=== PATIENT | female | born 1945 | race Caucasian/White ===

== ENCOUNTER → 2021-04-09 | Day surgery (SDC) | payer OTHER ==
[2021-04-08 09:59] LABS: Basophils # (auto) 0.1 10 ^3/uL (0-0.2); Basophils % (auto) 0.9 % (0.0-2.0); Eosinophils # (auto) 0.2 10 ^3/uL (0-0.8); Eosinophils % (auto) 1.6 % (0.0-7.0); Hematocrit 38.7 % (36.0-46.0); Hemoglobin 12.9 g/dL (12.2-16.2); Lymphocytes # (auto) 3.2 10 ^3/uL (0.4-5.4); Lymphocytes % (auto) 27.4 % (10.0-50.0); Mean Corpuscular Hemoglobin 28.5 pg (28.0-32.0); Mean Corpuscular Hgb Conc. 33.2 g/dL (32.0-36.0); Mean Corpuscular Volume 85.9 fL (80.0-100.0); Monocytes # (auto) 0.9 10 ^3/uL (0-1.3); Monocytes % (auto) 7.4 % (0.0-12.0); Neutrophils # (auto) 7.3 10 ^3/uL (1.6-8.6); Neutrophils % (auto) 62.7 % (37.0-80.0); Red Cell Distribution Width 14.4 % (11.8-14.3); White Blood Cell 11.6 10^3/uL (4.4-10.8)
[2021-04-08 10:16] LABS: Partial Thromboplastin Time 25.1 sec (23.6-33.0)
[2021-04-08 10:52] LABS: Albumin 3.4 g/dL (3.4-5.0); BUN/Creatinine Ratio 12.7; Bilirubin, Total 0.3 mg/dL (0.2-1.0); Calcium 9.3 mg/dL (8.5-10.1); Total Protein 7.7 g/dL (6.4-8.2)
[2021-04-08 10:56] LABS: Urine Bacteria NONE SEEN /hpf (None Seen); Urine Blood Negative /uL (Negative); Urine Mucus FEW (None Seen); Urine Specific Gravity 1.021 (1.001-1.035); Urine WBC 60 /hpf (0 - 5)
[~2021-04-09] VITALS: Ht 165.1 cm; Wt 84.8 kg
[~2021-04-09] MED LIST: ASPI1TAB20 PO; BUPIVACAINE 0.25% INJ 50ML VIAL ONE; CHOL20007 OR; EZET10TA22 PO; GABA-339 PO; HYDR-4072 PO; HYDROmorphone HCL 2 MG/ML VL IV PRN; IBU600T PO; LATA0.0019 OP; LEVO25TA6 PO; LIDOCAINE 2% (LOCAL ANESTH.) PF 5ml SDV ONE; LIDOCAINE W/ EPINEPHRINE 2% INJ 20ML VIAL ONE; METF-370 PO; MIDAZOLAM HCL 2MG/2ML 2ml VIAL (1mg/ml) ONE; OMEP20TA PO; ONDANSETRON HCL 4 MG/2 ML VIAL IV PRN; ONDANSETRON HCL 4 MG/2 ML VIAL ONE; PROPOFOL 10 MG/ML 20 ML IV ONE; TRIATAB3 OR; VANCOMYCIN HCL 1000 MG VL ONE; fentaNYL CITRATE 100 MCG/2 ML VL ONE
[2021-04-09 09:30] VITALS: BP 128/54
== END | disposition home or self-care (01) ==
LOC: SUR 06:09
PROVIDERS: ATTEND Anesthesiology Pain Medicine
DX: Z45.42 Encounter for adjustment and management of neurostimulator (principal); M96.1 Postlaminectomy syndrome, not elsewhere classified; M51.16 Intervertebral disc disorders with radiculopathy, lumbar region; M51.36 Other intervertebral disc degeneration, lumbar region; M48.062 Spinal stenosis, lumbar region with neurogenic claudication; I10 Essential (primary) hypertension; I48.91 Unspecified atrial fibrillation; E11.9 Type 2 diabetes mellitus without complications; E03.9 Hypothyroidism, unspecified; Z87.891 Personal history of nicotine dependence; Z20.822 Contact with and (suspected) exposure to COVID-19; Z98.890 Other specified postprocedural states; Z79.899 Other long term (current) drug therapy
CPT/HCPCS: 36415; 63685; 80053; 81001; 82962; 85025; 85610; 85730; 87086; 95972; A4215; C1787; C1820; J2001; J2250; J2405; J2704; J3010; J3370; J3490; U0003

== ENCOUNTER 2024-02-20 12:16 | Emergency (ER) | payer OTHER ==
[~2024-02-20] VITALS: Ht 165.1 cm; Wt 81.8 kg
[~2024-02-20 12:16] MED LIST changes: -BUPIVACAINE 0.25% INJ 50ML VIAL ONE; -HYDROmorphone HCL 2 MG/ML VL IV PRN; -LATA0.0019 OP; +LATA0.008 OP; -LIDOCAINE 2% (LOCAL ANESTH.) PF 5ml SDV ONE; -LIDOCAINE W/ EPINEPHRINE 2% INJ 20ML VIAL ONE; -MIDAZOLAM HCL 2MG/2ML 2ml VIAL (1mg/ml) ONE; -ONDANSETRON HCL 4 MG/2 ML VIAL IV PRN; -ONDANSETRON HCL 4 MG/2 ML VIAL ONE; -PROPOFOL 10 MG/ML 20 ML IV ONE; -VANCOMYCIN HCL 1000 MG VL ONE; -fentaNYL CITRATE 100 MCG/2 ML VL ONE
--- NOTE | 2024-02-20 13:19 | DVH ---
EXAM: CT HEAD WITHOUT CONTRAST HISTORY: fall COMPARISON: None TECHNIQUE: Axial images of the head were obtained and reformatted in coronal and sagittal planes. All CT scans at this medical facility are performed using dose modulation techniques as appropriate t o a performed exam including the following: Automated exposure control was utilized; adjustment of th e MA and/or KV according to patient size; and use of iterative reconstruction technique. CT Dose: CTDI volume is 57.75 mGy. 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 There is moderate associated streak artifact limiting evaluation adjacent parenchyma . There are postsurgical changes related to right frontal craniotomy. There is no gross evidence of acute intracranial hemorrhage, mass, mass effect midline shift. There i s no hydrocephalus or extra-axial fluid collection. Visualized parenchyma demonstrates appropriate g ray-white matter differentiation. The visualized paranasal sinuses and mastoid air cells are clear. The calvarium is intact. IMPRESSION: 1. No acute intracranial process. 2. Postsurgical changes related to aneurysm coiling and clipping. HS:Y
--- NOTE | 2024-02-20 13:23 | DVH ---
CLINICAL INDICATION: fall TECHNIQUE: XY L SHOULDER 2+ VIEW XRAY Comparison: None FINDINGS/IMPRESSION: There is no evidence of acute fracture or dislocation. The visualized joint space is well maintained. The alignment is anatomical. There is no radiopaque foreign body.
--- NOTE | 2024-02-20 13:33 | DVH ---
EXAM: CT CERVICAL WITHOUT CONTRAST INDICATION: fall EXAM DATE: 02/20/2024 12:54 PM COMPARISON: CT HEAD WITHOUT CONTRAST on DOS: 02/20/24 TECHNIQUE: Multiple axial CT images of the cervical spine were obtained using bone algorithm. Axial a nd coronal reformatting was done. Bone and soft tissue windows were reviewed. Radiation Dose Information: CT Dose: CTDI volume is 20.38 mGy. Dose-length product is 567.45 mGy*cm FINDINGS: The cervical alignment is intact. No acute cervical spine fracture is identified. The vertebral body heights are intact. No suspicious osseous lesions are identified. Nuchal ligament calcification is no brandan. Multilevel moderate degenerative changes of the cervical spine. There is no prevertebral soft tissue swelling. Redemonstration of aneurysmal coil over the left supr aclinoid ICA region with aneurysmal clips over the right supraclinoid ICA region . IMPRESSION: No evidence of acute cervical spine fracture or traumatic malalignment. If symptoms persist, consider MRI for further evaluation. All CT scans at this medical facility are performed using dose modulation techniques as appropriate t o a performed exam including the following: Automated exposure control was utilized; adjustment of th e MA and/or KV according to patient size; and use of iterative reconstruction technique.
[2024-02-20 14:12] LABS: Basophils # (auto) 0.1 10 ^3/uL (0-0.2); Basophils % (auto) 0.8 % (0.0-2.0); Eosinophils # (auto) 0.1 10 ^3/uL (0-0.8); Eosinophils % (auto) 1.2 % (0.0-7.0); Hematocrit 40.9 % (36.0-46.0); Hemoglobin 13.4 g/dL (12.2-16.2); Lymphocytes # (auto) 2.4 10 ^3/uL (0.4-5.4); Mean Corpuscular Hemoglobin 28.9 pg (28.0-32.0); Mean Corpuscular Hgb Conc. 32.9 g/dL (32.0-36.0); Monocytes # (auto) 0.8 10 ^3/uL (0-1.3); Monocytes % (auto) 7.4 % (0.0-12.0); Neutrophils # (auto) 7.6 10 ^3/uL (1.6-8.6); Neutrophils % (auto) 68.6 % (37.0-80.0); Platelet Count (auto) 421 10^3/uL (140-450); Red Blood Cells 4.65 10^6/uL (4.0-5.20); Red Cell Distribution Width 16.5 % (11.8-14.3); White Blood Cell 11.1 10^3/uL (4.4-10.8)
[2024-02-20 14:24] LABS: Chloride 101 mmol/L (98-107); INR 0.98 (0.9-1.15); Potassium 4.3 mmol/L (3.5-5.1); Prothrombin Time 10.4 sec (9.3-11.8); Sodium 137 mmol/L (136-145)
[2024-02-20 14:25] LABS: Anion Gap 5 (5-15); Carbon Dioxide 31 mmol/L (20-31)
[2024-02-20 14:30] LABS: BUN/Creatinine Ratio 20.6 (10.0-20.0); Blood Urea Nitrogen 20 mg/dL (9-23)
[2024-02-20 14:31] LABS: Glucose 167 mg/dL (74-106)
[2024-02-20] MEDS ORDERED: ACET-1881 PO (15:24)
--- NOTE | 2024-02-20 15:24 | ED.PDOC ---
HPI (NEURO) HPI Comments 78-year-old female with no pertinent MHx presents for a fall x1 day. Reports she was at a car wash when she fell down a curb and landed on her left side. Also hit her head but denies LOC Patient states she got right back up with the help of two with a gentleman Complains of pain to the left humerus and pain 6/10 Denies persistent nausea Denies vomiting Denies family history of brain issues persistent headaches Denies taking any blood thinner medication Denies vision/hearing changes Denies focal loss of strength/sensation or changes in speech Chief Complaint: Fall Injury Time Seen by MD: 14:49 Primary Care Provider: STEVEN Reviewed Notes: Nurses Notes, Medications, Allergies Information Source: Patient Mode of Arrival: EMS Family History Family History: Reviewed,noncontributory to illness Social History Smoker: Non-Smoker Alcohol: Denies ETOH Use Drugs: Denies Drug Use All Other Systems: Reviewed and Negative (per hpi) Physical Exam General Appearance: No Apparent Distress, Normal HEENT: Head (Head is normocephalic atraumatic. No abrasions lacerations hematomas open wounds or tenderness to palpation), Normal ENT Inspection, PERRL/EOMI, Pharynx Normal, TMs Normal Neck: Full Range of Motion, Non-Tender, Normal, Normal Inspection Respiratory: Chest Non-Tender, Lungs Clear, No Accessory Muscle Use, No Respiratory Distress, Normal Breath Sounds Cardiovascular: No Edema, No JVD, No Murmur, No Gallop, Normal Peripheral Pulses, Regular Rate/Rhythm Breast Exam: Deferred Gastrointestinal: No Organomegaly, Non Tender, No Pulsatile Mass, Normal Bowel Sounds, Soft Genitalia: Deferred Pelvic: Deferred Rectal: Deferred Extremities: No calf tenderness, Normal capillary refill, Normal inspection, Normal range of motion, Non-tender, No pedal edema Musculoskeletal : Location: Left Extremity Location: Shoulder (No abrasions lacerations full ROM. Distal sensation intact) Apperance: Normal Neurologic: Alert, grades 1 thru 5 teacher II-XII nml as Tested, No Motor Deficits, Normal Affect, Normal Mood, No Sensory Deficits Cerebellar Function: Normal Reflexes: Normal Skin: Dry, Normal Color, Warm Lymphatic: No Adenopathy Was a procedure done? Was a procedure done?: No Differential Diagnosis (SZ) Headache: Closed Head Injury X-Ray, Labs, Meds, VS Vital Signs Date Time Temp Pulse Resp B/P (MAP) Pulse Ox O2 Delivery O2 Flow Rate FiO2 02/20/24 15:28 82 16 99 Room Air 02/20/24 15:28 98.3 82 16 158/86 (110) 99 98.3 02/20/24 12:21 98.3 82 16 158/86 (110) 99 Lab Test 02/20/24 13:42 Range/Units White Blood Count 11.1 H 4.4-10.8 10^3/uL Red Blood Count 4.65 4.0-5.20 10^6/uL Hemoglobin 13.4 12.2-16.2 g/dL Hematocrit 40.9 36.0-46.0 % Mean Corpuscular Volume 88.0 80.0-100.0 fL Mean Corpuscular Hemoglobin 28.9 28.0-32.0 pg Mean Corpuscular Hemoglobin Concent 32.9 32.0-36.0 g/dL Red Cell Distribution Width 16.5 H 11.8-14.3 % Platelet Count 421 140-450 10^3/uL Mean Platelet Volume 6.7 L 6.9-10.8 fL Neutrophils (%) (Auto) 68.6 37.0-80.0 % Lymphocytes (%) (Auto) 22.0 10.0-50.0 % Monocytes (%) (Auto) 7.4 0.0-12.0 % Eosinophils (%) (Auto) 1.2 0.0-7.0 % Basophils (%) (Auto) 0.8 0.0-2.0 % Neutrophils # (Auto) 7.6 1.6-8.6 10 ^3/uL Lymphocytes # (Auto) 2.4 0.4-5.4 10 ^3/uL Monocytes # (Auto) 0.8 0-1.3 10 ^3/uL Eosinophils # (Auto) 0.1 0-0.8 10 ^3/uL Basophils # (Auto) 0.1 0-0.2 10 ^3/uL Nucleated Red Blood Cells 0.0 % Prothrombin Time 10.4 9.3-11.8 sec Prothrombin Time INR 0.98 0.9-1.15 Sodium Level 137 136-145 mmol/L Potassium Level 4.3 3.5-5.1 mmol/L Chloride Level 101 98-107 mmol/L Carbon Dioxide Level 31 20-31 mmol/L Anion Gap 5 5-15 Blood Urea Nitrogen 20 9-23 mg/dL Creatinine 0.97 0.550-1.02 mg/dL Glomerular Filtration Rate Calc 61 >90 mL/min BUN/Creatinine Ratio 20.6 H 10.0-20.0 Serum Glucose 167 H 74-106 mg/dL Calcium Level 10.0 8.7-10.4 mg/dL X-Ray, Labs, Meds, VS Comment History consistent with no acute bleed and no fractures Patient was monitored for an extensive amount of time and symptoms improved throughout the length of the patient's stay Low concern for subarachnoid hemorrhage there are no signs of a thunderclap headache Low concern for subdural hematoma and intracranial hemorrhage as there is no history of trauma, progressively worsening headache and neuroexam is unremarkable. Low suspicion for brain tumor as neuroexam is unremarkable. No nausea vomiting. No morning or nocturnal headache. No suspicion for temporal arteritis as there are no signs of fever, muscle we akness, jaw claudication, no transient visual loss. Drink plenty of water Exercise daily, limit screen time Aim to sleep 8 to 9 hours per night, practice good hygiene ED precautions given On reevaluation, patient had symptomatic improvement. Patient is stable for discharge at this time. External notes reviewed. Test results and diagnostic imaging interpreted. All diagnostic findings, discharge care, education and instructions provided Follow-up with PCP in 2 to 3 days Patient verbalized understanding and agreed to treatment plan Vital signs stable, afebrile, no acute distress noted Advised to return precautions for any new or worsening symptoms, return to ER immediately for re-evaluation Patient is aware that the purpose of this visit was for an acute medical emergency requiring emergent stabilization. Chronic conditions, including malignancies have not been ruled out. Patient is instructed to follow up with PCP as directed and discharge instructions for continued care and workup. If unable to arrange follow-up, patient is to return to the emergency department for reassessment. Patient (parent or legal guardian if applicable) was given verbal and written discharge instructions and acknowledges understanding. Time of 1ST Reevaluation: 15:00 Reevaluation 1ST: Improved Patient Education/Counseling: Diagnosis, Treatment Family Education/Counseling: Diagnosis, Treatment Departure 1 Departure Time of Disposition: 15:23 Impression: Primary Impression: Fall Qualified Codes: W19.XXXA - Unspecified fall, initial encounter Disposition: 01 HOME / SELF CARE / HOMELESS Condition: Stable e-Prescriptions Acetaminophen (Acetaminophen) 325 Mg Tab 325 MG PO Q6HP PRN for 10 Days, #40 TAB 0 Refills Prov: KOMAL WERNER NP 02/20/24 Discharged With: Relative Critical Care Note Critical Care Time?: No Stability Stability form required: No Heart Score Heart Score: Heart Score Response (Comments) Value History N/A 0 EKG N/A 0 Age N/A 0 Risk Factors N/A 0 Troponin N/A 0 Total 0 KOMAL WERNER NP Feb 20, 2024 15:24
[2024-02-20 15:28] VITALS: BP 158/86; PULSE 82; RESP 16; TEMP 98.3; O2SAT 99
== END 2024-02-20 15:24 | disposition home or self-care (01) ==
LOC: EDBD 12:16 → ER 12:16
DX: M25.512 Pain in left shoulder (principal); R51.9 Headache, unspecified; M54.2 Cervicalgia; W18.39XA Other fall on same level, initial encounter; Y93.89 Activity, other specified; Y92.89 Other specified places as the place of occurrence of the external cause; Y99.8 Other external cause status
CPT/HCPCS: 36415; 70450; 72125; 73030; 80048; 85025; 85610

== ENCOUNTER 2024-12-30 14:36 | Inpatient (IN) | payer OTHER ==
[~2024-12-30] VITALS: Ht 162.6 cm; Wt 85.2 kg
[~2024-12-30 14:36] MED LIST changes: +ACET-1881 PO
[2024-12-30 16:02] LABS: Alanine Aminotransferase 19 U/L (7-40); Albumin 4.5 g/dL (3.2-4.8); Alkaline Phosphatase 91 U/L (46-116); Anion Gap 11 (5-15); BUN/Creatinine Ratio 13.8 (10.0-20.0); Blood Urea Nitrogen 15 mg/dL (9-23); Calcium 9.1 mg/dL (8.7-10.4); Carbon Dioxide 29 mmol/L (20-31); Potassium 4.4 mmol/L (3.5-5.1); Sodium 138 mmol/L (136-145); Total Protein 7.8 g/dL (5.7-8.2)
[2024-12-30 16:03] LABS: Bilirubin, Total 0.4 mg/dL (0.2-1.0)
[2024-12-30 16:08] LABS: Chloride 98 mmol/L (98-107); Glucose 124 mg/dL (74-106)
[2024-12-30 16:21] LABS: Lactic Acid w/Reflex 2.4 mmol/L (0.4-2.0)
--- NOTE | 2024-12-30 16:41 | ED.PDOC ---
Musculoskeletal HPI Comments HPI: Poor Historian. 79-year-old female sent by her orthopedic doctor to be admitted to the hospital for removal of knee replacement instrumentation due to infection. Patient had a joint aspiration proximally a week ago that shows staph infection. They are planning to replace the knee instrumentations and insert antibiotics beads. She was sent here by her doctor for admission. Patient denies any fever chills or any other acute symptoms. There is noted erythema over the anterior part of the right knee for at least two months patient states. 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 Atrial fibrillation ablation, neurostimulator battery implanted, total knee replacement, eye cataract, colonoscopy, REVIEW OF SYSTEMS: CONSTITUTIONAL: Denies acute: fever, diaphoresis, chills, generalized weakness. HEAD: Denies acute: headache, photophobia Eyes: Denies acute: Double vision, vision loss, eye pain, eye discharge. EARS: Denies acute: tinnitus, hearing loss, ear discharge, ear pain, THROAT: Denies acute: sore throat, swelling, difficulty swallowing , pain with swallowing, change in voice. NECK: Denies acute: neck pain, neck swelling, stiff neck. HEART: Denies acute : chest pain, palpitations, LUNGS: Denies acute: SOB, wheezing, cough, hemoptysis ABDOMEN: Denies acute: abdominal pain, Nausea, Vomiting, diarrhea, melena , hematemesis, hematochezia SKIN: Denies acute: rash, redness, lesions, itchiness. EXTREMITIES: Denies acute: calf pain, numbness, tingling, weakness, denies pain in extremity. Denies acute: Low back pain. Neuro: Denies acute: focal neurological deficit, motor or sensory focal neurological deficit, tremors, seizure like activity, confusion, dizziness, change in mental status, loss of bowel or bladder function, cauda equina like symptoms. : Denies acute: dysuria, hematuria, flank pain, increase in urinary frequency. PSYCH: Denies acute: hallucination, suicidal ideation, homicidal ideation. FEMALE: Denies acute: abnormal vaginal bleeding, foul odor, unusual discharge. PHYSICAL EXAM: General: -----no--acute distress, awake and alert. Head: normocephalic, atraumatic. Neck: supple, trachea is midline, no swelling. Throat: Normal phonation. Eyes:, no erythema, no purulent discharge, no proptosis, no icterus. Heart: regular rate, regular rhythm, no significant murmur appreciated. Lungs: no apparent respiratory distress, Able to speak in full sentences. No wheezing, no rhonchi, no crackles. No stridors Clear to auscultation bilaterally. Abdomen: non tender to palpation, non distended, soft, no guarding, no rebound, + bowel sounds. Neuro: Awake, Alert, oriented to name, self, situation, follows commands GCS=15. Speech is normal. Skin: no petechia, no purpura, no cyanosis, non-pale, not jaundice. Lower extremities: --no - Pitting edema no deformity, no focal swelling, no calf TTP. Makes eye contact. moves all four extremities. Face: no apparent facial droop. Ambulating in the ED independently. Evaluation of the right knee: Noted slight swelling and some erythema that she had for at least two months. Pedal pulses are palpable. ED COURSE: DISCLAIMER: This medical document was created using an electronic medical record system with voice recognition software and computerized dictation system. Although this document has been carefully reviewed, there might still be some phonetic and typographical errors. Occasional wrong-word or "sound-alike" substitutions may have occurred due to the inherent limitations of voice recognition software. These areas are purely typographical due to imperfections of the software programs and do not reflect any compromise in the patient's medical care. Please read the chart carefully and recognize, using context, where these substitutions have occurred. Chief Complaint: Lower Extremity Time Seen by MD: 15:17 Primary Care Provider: STEVEN Reviewed Notes: Allergies Allergies: Coded Allergies: Erythromycin (Unverified Allergy, Severe, angioedema, 04/08/21) Amoxicillin (Unverified Allergy, Intermediate, rash, 04/08/21) Cephalexin (Unverified Allergy, Intermediate, rash, 04/08/21) Clavulanic Acid (Unverified Allergy, Intermediate, rash, 04/08/21) Latex (Verified Allergy, Unknown, 12/30/24) Statins (Verified Allergy, Unknown, 12/30/24) Home Meds Active Scripts Acetaminophen (Acetaminophen) 325 Mg Tab, 325 MG PO Q6HP PRN for 10 Days, #40 TAB 0 Refills Prov:KOMAL WERNER Mary ALGOLOGIST 02/20/24 Reported Medications Aspirin (Aspirin Low Dose) 81 Mg Chw, 1 TAB PO DAILY, #30 TAB 3 Refills 12/31/24 Cholecalciferol (VITAMIN D3) 2,000 Unit Tab, 2 TAB PO DAILY, #30 TAB 5 Refills 12/31/24 Famotidine (PEPCID TABLET) 20 Mg Tb, 1 TAB PO HS, #60 TAB 5 Refills 12/31/24 Ezetimibe (Ezetimibe) 10 Mg Tab, 10 MG PO DAILY, TAB 12/31/24 Metformin Hydrochloride (Metformin Hcl) 500 Mg Tab, 500 MG PO TID, TAB 12/31/24 Hydrochlorothiazide W/Triamter (Triamterene/Hydrochloroth) 1 Cap Cap, 1 CAP PO QAM, CAP 12/31/24 Levothyroxine Sodium (Levothyroxine Sodium) 25 Mcg Tab, 1 TAB PO DAILY, #30 TAB 5 Refills 12/31/24 Latanoprost (LATANOPROST) 0.005 % Rukhsana, 0.005 % OP, ML 04/08/21 Omeprazole (Gnp Omeprazole) 20 Mg Tab, 20 MG PO DAILY, TAB 04/08/21 Gabapentin (Gabapentin) 600 Mg Tab, 600 MG PO TID, TAB 04/08/21 Hydrocodone-Acetaminophen (Hydrocodone/Acetaminophen 10-325 mg) 1 Tab Tab, 1 TAB PO TID, TAB 04/08/21 Information Source: Patient Mode of Arrival: Ambulatory Family History Family History: Reviewed,noncontributory to illness Social History Smoker: Non-Smoker Alcohol: Denies ETOH Use Drugs: Denies Drug Use Was a procedure done? Was a procedure done?: No Differential Diagnosis EXT Differential Diagnosis: Cellulitis, Deep Vein Thrombosis, Compartment Syndrome, Fracture, Sprain, Contusion, Septic, Neurovascular injury, Arthritis, Bursitis X-Ray, Labs, Meds, VS Vital Signs Date Time Temp Pulse Resp B/P (MAP) Pulse Ox O2 Delivery O2 Flow Rate FiO2 12/30/24 16:51 98.0 74 18 144/64 (90) 93 98.0 12/30/24 14:38 98.8 86 19 144/81 95 98.8 Lab Test 12/30/24 17:29 12/30/24 15:35 Range/Units Lactic Acid Level 1.8 2.4 *H 0.4-2.0 mmol/L White Blood Count 11.9 H 4.4-10.8 10^3/uL Red Blood Count 4.71 4.0-5.20 10^6/uL Hemoglobin 13.2 12.2-16.2 g/dL Hematocrit 40.6 36.0-46.0 % Mean Corpuscular Volume 86.2 80.0-100.0 fL Mean Corpuscular Hemoglobin 28.0 28.0-32.0 pg Mean Corpuscular Hemoglobin Concent 32.5 32.0-36.0 g/dL Red Cell Distribution Width 16.7 H 11.8-14.3 % Platelet Count 423 140-450 10^3/uL Mean Platelet Volume 7.0 6.9-10.8 fL Neutrophils (%) (Auto) 63.9 37.0-80.0 % Lymphocytes (%) (Auto) 27.2 10.0-50.0 % Monocytes (%) (Auto) 6.9 0.0-12.0 % Eosinophils (%) (Auto) 1.2 0.0-7.0 % Basophils (%) (Auto) 0.8 0.0-2.0 % Neutrophils # (Auto) 7.6 1.6-8.6 10 ^3/uL Lymphocytes # (Auto) 3.2 0.4-5.4 10 ^3/uL Monocytes # (Auto) 0.8 0-1.3 10 ^3/uL Eosinophils # (Auto) 0.1 0-0.8 10 ^3/uL Basophils # (Auto) 0.1 0-0.2 10 ^3/uL Nucleated Red Blood Cells 0.0 % Erythrocyte Sedimentation Rate 30 H 0-20 mm/hr Sodium Level 138 136-145 mmol/L Potassium Level 4.4 3.5-5.1 mmol/L Chloride Level 98 98-107 mmol/L Carbon Dioxide Level 29 20-31 mmol/L Anion Gap 11 5-15 Blood Urea Nitrogen 15 9-23 mg/dL Creatinine 1.09 H 0.550-1.02 mg/dL Glomerular Filtration Rate Calc 52 >90 mL/min BUN/Creatinine Ratio 13.8 10.0-20.0 Serum Glucose 124 H 74-106 mg/dL Calcium Level 9.1 8.7-10.4 mg/dL Total Bilirubin 0.4 0.2-1.0 mg/dL Aspartate Amino Transferase (AST) 17 13-40 U/L Alanine Aminotransferase (ALT) 19 7-40 U/L Alkaline Phosphatase 91 46-116 U/L C-Reactive Protein High Sensitivity 2.21 H <1.0 mg/dL Total Protein 7.8 5.7-8.2 g/dL Albumin 4.5 3.2-4.8 g/dL Time of 1ST Reevaluation: 20:28 (The case was discussed with the admitting team (HPI, physical exam, labs and diagnostic tests that were available at the time of disposition, ED course, treatment plan) on the phone. They agreed to admit the patient to their service and assume care of this patient from this point forward. CATHERINE Baca. ) Reevaluation 1ST: Unchanged Patient Education/Counseling: Diagnosis, Treatment Family Education/Counseling: Other Comments MDM: patient presented with the above HPI.---knee infection---workup was initiated. patient was found with the above mentioned diagnosis. the following medications were ordered: please refer to order lists of meds and tests obtained by myself Dr. Negrete. Patient ED course and VS have been stabilized. Patient has been reassessed in the ED and remained in a stable condition. Pertinent incidental findings were discussed with the patient and/or family. Patient/family voices understanding and is agreeable with plan. Patient has been observed in the ED adequate length of time to insure improvement/stability. Escalation of care considered: Consideration of escalation to observation or admission Patient was ADMITTED to the medicine team for further evaluation and treatment of their presentation. All the reports of any imaging studies that were ordered by myself were reviewed by myself. Sepsis Sepsis Reasesment Focused Exam Orders: Laboratory Tests 12/30/24 15:35: Lactic Acid Level 2.4 12/30/24 17:29: Lactic Acid Level 1.8 Departure 1 Departure Time of Disposition: 16:41 Impression: Primary Impression: Infection of right knee Additional Impressions: Elevated lactic acid level UTI (urinary tract infection) Joint effusion of knee Disposition: ADMITTED INPATIENT Admit to: Tele Condition: Guarded Discharged With: Self Critical Care Note Critical Care Time?: No GISSELLE NEGRETE DO Dec 30, 2024 16:41
[2024-12-30 16:48] LABS: Hematocrit 40.6 % (36.0-46.0); Hemoglobin 13.2 g/dL (12.2-16.2); Mean Corpuscular Hemoglobin 28.0 pg (28.0-32.0); Mean Corpuscular Volume 86.2 fL (80.0-100.0); Nucleated Red Blood Cells % 0.0 %
[2024-12-30] MEDS ORDERED: ACETAMINOPHEN 325 MG TAB PO PRN (20:45)
[2024-12-30] MEDS ORDERED: MORPHINE SULFATE INJ 2 MG/ml SYRG IV PRN ×2 (20:45)
[2024-12-30] MEDS ORDERED: VANCOMYCIN PER PHARMACY 0 MG IV SCH (20:45)
[2024-12-30] MEDS ORDERED: DEXTROSE (50%) 50ML SYRG IV PRN (20:45)
[2024-12-30] MEDS ORDERED: ONDANSETRON HCL 4 MG/2 ML VIAL IV PRN (20:45)
[2024-12-30] MEDS ORDERED: NITROGLYCERIN 0.4 MG SL TAB SL PRN (20:45)
--- NOTE | 2024-12-30 21:37 | DVH ---
XY CHEST TWO VIEWS ROUTINE CLINICAL HISTORY: presurgical clearance COMPARISON: None TECHNIQUE: Frontal and lateral view of the chest was obtained FINDINGS: Lines and Tubes: None Lungs: No focal consolidation. Pleura: No effusion. No pneumothorax. Cardiomediastinal contours: Unremarkable Bones: No acute osseous abnormality. Moderate degenerative changes of the thoracic spine. Spinal sti mulator wires noted terminating at the level of the lower thoracic spine. IMPRESSION: No acute cardiopulmonary disease.
[2024-12-30 22:03] LABS: INR 1.0 (0.9-1.15); Prothrombin Time 10.6 sec (9.3-11.8)
[2024-12-31] VITALS (10 sets, daily range): BP systolic 106–145; BP diastolic 37–82; PULSE 74–88; RESP 13–18; TEMP 96.9–98.2; O2SAT 92–97
[2024-12-31] MEDS: InsuLIN REG 1unit/0.01ml Soln (100units/ml) SC SCH
[2024-12-31] MEDS: ACCU-CHEK COMFORT CURVE STRIP VI SCH
--- NOTE | 2024-12-31 01:38 | DVHHP2 ---
JOSE ROBERTO PÉREZ [employer] 12/31/24 0138: History of Present Illness Reason for Visit: Right knee infection History of Present Illness 79-year-old female with past medical history of DM, right knee arthroplasty, GERD, hypothyroidism presents after being sent in by her orthopedic surgeon for inpatient admission. Patient endorsed she recently had fluid aspiration from the right knee which resulted positive for staph infection. Initial lab work during the emergency department evaluation CMP Na 138, K4.4, BUN 15, creatinine 1.09, GFR 52 LA 2.4/1.8, C-reactive protein 2.21, ESR 30; CBC W11.9, H&H 13.2/40.6, PLT 423. At this time patient denies fevers, chills, dizziness, shortness of breath, chest pain, palpitations, previous heart attacks, increased leg swelling, dysuria. GI: GERD Endocrine: Diabetes Smoke: No ALCOHOL: none Lives: with Family Review of Systems Constitutional: No: Fever, Chills, Sweats, Weakness, Malaise, Other Eyes: No: Pain, Vision change, Conjunctivae inflammation, Eyelid inflammation, Other, Redness ENT: No: Ear pain, Ear discharge, Nose pain, Nose discharge, Nose congestion, Mouth pain, Mouth swelling, Throat pain, Throat swelling, Other Respiratory: No: Cough, Dry, Shortness of breath, SOB with excertion, Wheezing, Hemoptysis, Pleuritic Pain, Sputum, Wheezing, Other Cardiovascular: No: Chest Pain, Palpitations, Orthopnea, Paroxysmal Noc. Dyspnea, Edema, Lt Headedness, Other Gastrointestinal: No: Nausea, Vomiting, Abdominal Pain, Diarrhea, Constipation, Melena, Hematochezia, Other Genitourinary: No Dysuria, No Frequency, No Incontinence, No Hematuria, No Retention, No Other Musculoskeletal: leg pain Skin: Other (Redness to right knee); No: Rash, Lesions, Jaundice, Bruising Neurological: No: Weakness, Numbness, Incoordination, Change in speech, Confusion, Seizures, Other Allergies: Coded Allergies: Erythromycin (Unverified Allergy, Severe, angioedema, 04/08/21) Amoxicillin (Unverified Allergy, Intermediate, rash, 04/08/21) Cephalexin (Unverified Allergy, Intermediate, rash, 04/08/21) Clavulanic Acid (Unverified Allergy, Intermediate, rash, 04/08/21) Latex (Verified Allergy, Unknown, 12/30/24) Statins (Verified Allergy, Unknown, 12/30/24) Medications Current Medications Medications Dose Ordered Sig/Esther Route Start Time Stop Time Status Last Admin Dose Admin Acetaminophen 650 mg Q6HP PRN PO 12/30/24 20:45 Ondansetron HCl 4 mg Q4HP PRN IV 12/30/24 20:45 Morphine Sulfate 2 mg Q4HPRN PRN IV 12/30/24 20:45 Enoxaparin Sodium 40 mg DAILY SC 12/31/24 10:00 Nitroglycerin 0.4 mg Q5MINP PRN SL 12/30/24 20:45 Morphine Sulfate 2 mg Q30M PRN IV 12/30/24 20:45 Vancomycin HCl 0 ml @ 0 mls/hr UD IV 12/30/24 20:45 UNV Levofloxacin 50 ml @ 50 mls/hr DAILY IV 12/31/24 10:00 Diagnostic Test (Pha) 1 strip Q6HR 12/31/24 00:00 Insulin Human Regular Q6HR SC 12/31/24 00:00 Dextrose 50 ml UD PRN IV 12/30/24 20:45 Exam Vital Signs Vital Signs Date Time Temp Pulse Resp B/P (MAP) Pulse Ox O2 Delivery O2 Flow Rate FiO2 12/30/24 16:51 98.0 74 18 144/64 (90) 93 98.0 General Appearance: Alert, Oriented X3, Cooperative, mild distress HEENT: Atraumatic, PERRLA, EOMI Respiratory: Normal air movement Cardiovascular: Regular rate, Normal S1, Normal S2 Abdominal: Normal bowel sounds, Soft, No tenderness Extremities: No clubbing, No cyanosis, No edema, Normal pulses, Other (Noted erythema to right knee. Warmth) Skin: No breakdown Neuro: Normal gait, Normal speech, Strength at 5/5 X4 ext Psych/Mental Status: Mental status NL, Mood NL Labs/Xrays Labs Test 12/30/24 21:34 12/30/24 17:29 12/30/24 15:35 Range/Units Prothrombin Time 10.6 9.3-11.8 sec Prothrombin Time INR 1.00 0.9-1.15 Lactic Acid Level 1.8 0.4-2.0 mmol/L White Blood Count 11.9 H 4.4-10.8 10^3/uL Red Blood Count 4.71 4.0-5.20 10^6/uL Hemoglobin 13.2 12.2-16.2 g/dL Hematocrit 40.6 36.0-46.0 % Mean Corpuscular Volume 86.2 80.0-100.0 fL Mean Corpuscular Hemoglobin 28.0 28.0-32.0 pg Mean Corpuscular Hemoglobin Concent 32.5 32.0-36.0 g/dL Red Cell Distribution Width 16.7 H 11.8-14.3 % Platelet Count 423 140-450 10^3/uL Mean Platelet Volume 7.0 6.9-10.8 fL Neutrophils (%) (Auto) 63.9 37.0-80.0 % Lymphocytes (%) (Auto) 27.2 10.0-50.0 % Monocytes (%) (Auto) 6.9 0.0-12.0 % Eosinophils (%) (Auto) 1.2 0.0-7.0 % Basophils (%) (Auto) 0.8 0.0-2.0 % Neutrophils # (Auto) 7.6 1.6-8.6 10 ^3/uL Lymphocytes # (Auto) 3.2 0.4-5.4 10 ^3/uL Monocytes # (Auto) 0.8 0-1.3 10 ^3/uL Eosinophils # (Auto) 0.1 0-0.8 10 ^3/uL Basophils # (Auto) 0.1 0-0.2 10 ^3/uL Nucleated Red Blood Cells 0.0 % Erythrocyte Sedimentation Rate 30 H 0-20 mm/hr Sodium Level 138 136-145 mmol/L Potassium Level 4.4 3.5-5.1 mmol/L Chloride Level 98 98-107 mmol/L Carbon Dioxide Level 29 20-31 mmol/L Anion Gap 11 5-15 Blood Urea Nitrogen 15 9-23 mg/dL Creatinine 1.09 H 0.550-1.02 mg/dL Glomerular Filtration Rate Calc 52 >90 mL/min BUN/Creatinine Ratio 13.8 10.0-20.0 Serum Glucose 124 H 74-106 mg/dL Calcium Level 9.1 8.7-10.4 mg/dL Total Bilirubin 0.4 0.2-1.0 mg/dL Aspartate Amino Transferase (AST) 17 13-40 U/L Alanine Aminotransferase (ALT) 19 7-40 U/L Alkaline Phosphatase 91 46-116 U/L C-Reactive Protein High Sensitivity 2.21 H <1.0 mg/dL Total Protein 7.8 5.7-8.2 g/dL Albumin 4.5 3.2-4.8 g/dL SEPSIS Sepsis Screen Date sepsis recognized/suspect: Dec 30, 2024 Time Sepsis recognized/suspect: 1437 Recent Procedure: No On Antibiotic Therapy: No Respiratory Rate >20: No Heart Rate >90: No Temp<36 C (96.8 F) or >38.3 C: No SBP <90 or MAP <65 mmHG: No New Acute Mental Status Change: No Is the patient on CPAP, BIPAP,: No Physician Orders Obtain Consent For: (12/30/24 20:20) Obtain Consent For Anesthesia (12/30/24 20:20) Chest Two Views Routine (12/30/24 20:40) Electrocardigram (12/30/24 20:40) Urinalysis (12/30/24 20:40) Admit (12/30/24 20:40) Code Status (12/30/24 20:40) Vital Signs .PER UNIT PROTOCOL (12/30/24 20:40) Review Orders With Adm.Md (12/30/24 20:40) Encourage Activity As Tolerate (12/30/24 20:40) Npo (Nothing By Mouth) Diet (12/31/24 Breakfast) Acetaminophen Tablet (Tylenol Tablet) (12/30/24 20:45) Notify Md Of Changes From Base (12/30/24 20:40) Advance Directive (12/30/24 20:40) Basic Metabolic Panel (12/31/24 05:00) Basic Metabolic Panel (01/01/25 05:00) Basic Metabolic Panel (01/02/25 05:00) Basic Metabolic Panel (01/03/25 05:00) Basic Metabolic Panel (01/04/25 05:00) Complete Blood Count (12/31/24 05:00) Complete Blood Count (01/01/25 05:00) Complete Blood Count (01/02/25 05:00) Complete Blood Count (01/03/25 05:00) Complete Blood Count (01/04/25 05:00) Patient Condition (12/30/24 20:40) Allergies (12/30/24 20:40) Ondansetron Hcl (Zofran) (12/30/24 20:45) Morphine Sulfate Injection (12/30/24 20:45) Enoxaparin Sodium (Lovenox) (12/31/24 10:00) Nitroglycerin Sublingual (Ntrostat Subli (12/30/24 20:45) Morphine Sulfate Injection (12/30/24 20:45) Stat Ekg For Chest Pain (12/30/24 20:40) Notify Md Of Changes From Base (12/30/24 20:40) Instrument And Controls Technician For 24 Hours (12/30/24 20:40) Emergency Dysrhythmia Protocol (12/30/24 20:40) Rhythm Strips Once Every Shift (12/30/24 20:40) Oxygen By Nasal Cannula (12/30/24 20:40) Sodium Chloride 0.9% (12/30/24 20:45) Vancomycin Per Pharmacy (12/30/24 20:45) Levofloxacin 250mg (Levaquin 250mg) (12/31/24 10:00) Glucose Blood (Accu-Chek Comfort Curve T (12/31/24 00:00) Insulin R (Human) (Insulin R) (12/31/24 00:00) Dextrose 50% Syringe (12/30/24 20:45) Laboratory Tests Test 12/30/24 15:35 12/30/24 17:29 Lactic Acid Level 2.4 mmol/L (0.4-2.0) *H 1.8 mmol/L (0.4-2.0) White Blood Count 11.9 10^3/uL (4.4-10.8) H Assessment/Plan Assessment/Plan Right knee infection HX right knee arthroplasty DM Plan Admit telemetry Orthopedic surgeon consult. ID consult IVF IV ABX Blood glucose checks with regular insulin sliding skill coverage, every 6 hrs to prevent hypoglycemia. As needed analgesia GI ppx protonix / DVT ppx lovenox Plan discussed with: Patient My Orders Orders - JOSE ROBERTO PÉREZ NP Procedure Category Date Status Time Chest Two Views XY 12/30/24 Resulted Routine 20:40 Electrocardigram EKG 12/30/24 Logged 20:40 Urinalysis LAB 12/30/24 Logged 20:40 Admit ADMIT 12/30/24 Transmitted 20:40 Code Status CODE 12/30/24 Transmitted 20:40 Vital Signs [facility] 12/30/24 In Process 20:40 Review Orders With [facility] 12/30/24 In Process Adm. 20:40 Encourage Activity As [facility] 12/30/24 In Process Tolerate 20:40 Npo (Nothing By DIET 12/31/24 Transmitted Mouth) Diet Breakfast Acetaminophen Tablet [facility] 12/30/24 In Process (Tylenol Tablet) 20:45 Notify Of Changes [facility] 12/30/24 In Process From Base 20:40 Advance Directive MICHELLE 12/30/24 In Process 20:40 Basic Metabolic Panel LAB 12/31/24 Logged 05:00 Basic Metabolic Panel LAB 01/01/25 Verified 05:00 Basic Metabolic Panel LAB 01/02/25 Verified 05:00 Basic Metabolic Panel LAB 01/03/25 Verified 05:00 Basic Metabolic Panel LAB 01/04/25 Verified 05:00 Complete Blood Count LAB 12/31/24 Logged 05:00 Complete Blood Count LAB 01/01/25 Verified 05:00 Complete Blood Count LAB 01/02/25 Verified 05:00 Complete Blood Count LAB 01/03/25 Verified 05:00 Complete Blood Count LAB 01/04/25 Verified 05:00 Patient Condition ORDERS 12/30/24 Transmitted 20:40 Allergies [facility] 12/30/24 In Process 20:40 Ondansetron Hcl PHA 12/30/24 In Process (Zofran) 20:45 Morphine Sulfate PHA 12/30/24 In Process Injection 20:45 Enoxaparin Sodium PHA 12/31/24 In Process (Lovenox) 10:00 Nitroglycerin [facility] 12/30/24 In Process Sublingual (Ntrostat 20:45 Morphine Sulfate PHA 12/30/24 In Process Injection 20:45 Stat Ekg For Chest [facility] 12/30/24 In Process Pain 20:40 Notify Of Changes [facility] 12/30/24 In Process From Base 20:40 Instrument And Controls Technician For [facility] 12/30/24 In Process 24 Hours 20:40 Emergency Dysrhythmia [facility] 12/30/24 In Process Protocol 20:40 Rhythm Strips Once [facility] 12/30/24 In Process Every Shift 20:40 Oxygen By Nasal RT 12/30/24 Transmitted Cannula 20:40 Sodium Chloride 0.9% [facility] 12/30/24 In Process 20:45 Vancomycin Per [facility] 12/30/24 Pending Pharmacy 20:45 Levofloxacin 250mg [facility] 12/31/24 In Process (Levaquin 250mg) 10:00 Glucose Blood [facility] 12/31/24 In Process (Accu-Chek Comfort 00:00 Insulin R (Human) [facility] 12/31/24 In Process (Insulin R) 00:00 Dextrose 50% Syringe [facility] 12/30/24 In Process 20:45 Date of Service: Dec 31, 2024 Billing Provider: CARMINE HOWARD MD Common Visit Codes: NOT BILLABLE CARMINE HOWARD MD 12/31/24 1618: Review of Systems Allergies: Coded Allergies: Erythromycin (Unverified Allergy, Severe, angioedema, 04/08/21) Amoxicillin (Unverified Allergy, Intermediate, rash, 04/08/21) Cephalexin (Unverified Allergy, Intermediate, rash, 04/08/21) Clavulanic Acid (Unverified Allergy, Intermediate, rash, 04/08/21) Latex (Verified Allergy, Unknown, 12/30/24) Statins (Verified Allergy, Unknown, 12/30/24) Additional Comments Additional Comments Additional Comments Patient is seen evaluated and admitted by nurse practitioner. Patient's chart is reviewed and evaluated. Agree with nurse practitioner's evaluation, documentation, assessment and care plan as outlined. JOSE ROBERTO PÉREZ NP Dec 31, 2024 01:38 CARMINE HOWARD MD Dec 31, 2024 16:18
--- NOTE | 2024-12-31 03:54 | DVH ---
CLINICAL INDICATION: pain TECHNIQUE: XY R KNEE 3V XRAY Comparison: XR KNEE RIGHT 3 VIEW on DOS: 10/24/24 FINDINGS/IMPRESSION: : Hardware status post total knee arthroplasty without evidence of complication. There is no evidence of acute fracture or dislocation. Moderate suprapatellar effusion. Soft tissues are otherwise unremarkable.
[2024-12-31] MEDS: SODIUM CHLORIDE 0.9% 1,000 ML IV ONE (05:10)
[2024-12-31 05:25] LABS: Hematocrit 39.8 % (36.0-46.0); Hemoglobin 13.2 g/dL (12.2-16.2); Mean Corpuscular Hemoglobin 28.5 pg (28.0-32.0); Mean Corpuscular Volume 85.9 fL (80.0-100.0); Nucleated Red Blood Cells % 0.1 %
[2024-12-31 05:37] LABS: Potassium 4.3 mmol/L (3.5-5.1); Sodium 137 mmol/L (136-145)
[2024-12-31 05:38] LABS: Anion Gap 13 (5-15); Carbon Dioxide 27 mmol/L (20-31)
[2024-12-31 05:39] LABS: Calcium 9.4 mg/dL (8.7-10.4)
[2024-12-31 05:44] LABS: BUN/Creatinine Ratio 17.6 (10.0-20.0); Blood Urea Nitrogen 18 mg/dL (9-23)
[2024-12-31 05:51] LABS: Chloride 97 mmol/L (98-107); Glucose 128 mg/dL (74-106)
[2024-12-31] MEDS ORDERED: LEVO25TA6 PO (06:40)
[2024-12-31] MEDS ORDERED: TRIA37.586 PO (06:41)
[2024-12-31] MEDS ORDERED: METF-370 PO (06:41)
[2024-12-31] MEDS ORDERED: EZET-10 PO (06:42)
[2024-12-31] MEDS ORDERED: FAMO20TA10 PO (06:42)
[2024-12-31] MEDS ORDERED: CHOL20007 PO (06:43)
[2024-12-31] MEDS ORDERED: ASPI81CH59 PO (06:44)
[2024-12-31] MEDS: VANCOMYCIN 1GM/250ML KIT 250 ML IV ONE (06:56)
[2024-12-31] MEDS: VANCOMYCIN PER PHARMACY 0 MG IV ONE (08:15)
[2024-12-31] MEDS ORDERED: TOBRAMYCIN PER PHARMACY 0 ML IV ONE (08:15)
[2024-12-31 08:18] LABS: Urine Budding Yeast OCCASIONAL /hpf (None Seen); Urine Protein, UAD TRACE (Negative)
[2024-12-31] MEDS: VANCOMYCIN HCL 1000 MG VL XX ONE (09:00)
[2024-12-31] MEDS: GABAPENTIN 300 MG CAP PO ONE (09:35)
[2024-12-31] MEDS: CELECOXIB 100 MG CAP PO ONE (09:35)
[2024-12-31] MEDS: ACETAMINOPHEN IV 1000 MG/100ML (10MG/ML) IV ONE (09:35)
[2024-12-31] MEDS ORDERED: LIDOCAINE 1% INJ PF 5ML AMP ONE (09:47)
[2024-12-31] MEDS ORDERED: ONDANSETRON HCL 4 MG/2 ML VIAL ONE (09:47)
[2024-12-31] MEDS ORDERED: PROPOFOL 10 MG/ML 20 ML IV ONE ×3 (09:47→12:42)
[2024-12-31] MEDS ORDERED: KETOROLAC TROMETH 30 MG/ML 1ML VIAL ONE (09:47)
[2024-12-31] MEDS ORDERED: GLYCOPYRROLATE 0.2 MG/ML 1ML VIAL ONE (09:47)
--- NOTE | 2024-12-31 09:49 | DVHINCON2 ---
Date of service: Dec 31, 2024 Referring Physician Courtney romo Reason for Consultation Right knee prosthetic joint infection History of Present Illness Patient is a 79-year-old female with past medical history of Diabetes Mellitus, right knee arthroplasty 9 years ago, presents after being sent in by her orthopedic surgeon for inpatient admission. Patient reports she recently had fluid aspiration from the right knee which resulted positive for staph infection. She underwent explant of arthrosis due to infection. OR cultures are sent. ID is consulted for antibiotics management She has multiple allergies Chest x-ray showed No acute cardiopulmonary disease. Knee x-ray showed Hardware status post total knee arthroplasty without evidence of complication. There is no evidence of acute fracture or dislocation. Moderate suprapatellar effusion. Soft tissues are otherwise unremarkable. PMH GERD, hypothyroidism Past Medical History Patient's Past Medical History is significant for GERD and Diabetes Mellitus Family History: Diabetes mellitus G8 MOTHER FH: cancer Social History Smoke: No ALCOHOL: none Lives: with Family Allergies: Coded Allergies: Erythromycin (Unverified Allergy, Severe, angioedema, 04/08/21) Amoxicillin (Unverified Allergy, Intermediate, rash, 04/08/21) Cephalexin (Unverified Allergy, Intermediate, rash, 04/08/21) Clavulanic Acid (Unverified Allergy, Intermediate, rash, 04/08/21) Latex (Verified Allergy, Unknown, 12/30/24) Statins (Verified Allergy, Unknown, 12/30/24) Home Meds Active Scripts Acetaminophen (Acetaminophen) 325 Mg Tab, 325 MG PO Q6HP PRN for 10 Days, #40 TAB 0 Refills Prov:KOMAL WERNER PULP [employer] FEEDER 02/20/24 Reported Medications Aspirin (Aspirin Low Dose) 81 Mg Chw, 1 TAB PO DAILY, #30 TAB 3 Refills 12/31/24 Cholecalciferol (VITAMIN D3) 2,000 Unit Tab, 2 TAB PO DAILY, #30 TAB 5 Refills 12/31/24 Famotidine (PEPCID TABLET) 20 Mg Tb, 1 TAB PO HS, #60 TAB 5 Refills 12/31/24 Ezetimibe (Ezetimibe) 10 Mg Tab, 10 MG PO DAILY, TAB 12/31/24 Metformin Hydrochloride (Metformin Hcl) 500 Mg Tab, 500 MG PO TID, TAB 12/31/24 Hydrochlorothiazide W/Triamter (Triamterene/Hydrochloroth) 1 Cap Cap, 1 CAP PO QAM, CAP 12/31/24 Levothyroxine Sodium (Levothyroxine Sodium) 25 Mcg Tab, 1 TAB PO DAILY, #30 TAB 5 Refills 12/31/24 Latanoprost (LATANOPROST) 0.005 % Rukhsana, 0.005 % OP, ML 04/08/21 Ibuprofen Micronized (MOTRIN TABLET) 600 Mg Tb, 600 MG PO TID, #40 TAB *Black box warning-NSAIDS can increase risk of CA & hypertension, GI irritation, ulceration, bleed, perferation. Do not use post cardiac surgery. Use short duration/lowest effective dose. 04/08/21 Omeprazole (Gnp Omeprazole) 20 Mg Tab, 20 MG PO DAILY, TAB 04/08/21 Gabapentin (Gabapentin) 600 Mg Tab, 600 MG PO TID, TAB 04/08/21 Hydrocodone-Acetaminophen (Hydrocodone/Acetaminophen 10-325 mg) 1 Tab Tab, 1 TAB PO TID, TAB 04/08/21 Current Medications Current Medications Medications (Trade) Dose Ordered Sig/Esther Route PRN Reason Start Time Stop Time Status Last Admin Acetaminophen (Tylenol Tablet) 650 mg Q6HP PRN PO PAIN SCALE 1-3 OR TEMP>100.4 12/30/24 20:45 Ondansetron HCl (Zofran) 4 mg Q4HP PRN IV NAUSEA / VOMITING 12/30/24 20:45 Morphine Sulfate 2 mg Q4HPRN PRN IV SEVERE PAIN (7-10 PAIN SCALE) 12/30/24 20:45 Enoxaparin Sodium (Lovenox) 40 mg DAILY SC 12/31/24 10:00 Nitroglycerin (Ntrostat Sublingual) 0.4 mg Q5MINP PRN SL FOR CHEST PAIN 12/30/24 20:45 Morphine Sulfate 2 mg Q30M PRN IV FOR CHEST PAIN 12/30/24 20:45 Vancomycin HCl 0 ml @ 0 mls/hr UD IV 12/30/24 20:45 12/31/24 08:46 DC Levofloxacin 50 ml @ 50 mls/hr DAILY IV 12/31/24 10:00 Diagnostic Test (Pha) (Accu-Chek Comfort Curve T) 1 strip Q6HR 12/31/24 00:00 12/31/24 05:14 Insulin Human Regular (InsuLIN R) Q6HR SC 12/31/24 00:00 Dextrose 50 ml UD PRN IV Blood Sugar LESS THAN 60 12/30/24 20:45 Pantoprazole Sodium (Protonix) 40 mg DAILY IV 12/31/24 10:00 Review of Systems Constitutional: No: Fever, Chills, Sweats, Weakness, Malaise, Other Eyes: No: Pain, Vision change, Conjunctivae inflammation, Eyelid inflammation, Other, Redness ENT: No: Ear pain, Ear discharge, Nose pain, Nose discharge, Nose congestion, Mouth pain, Mouth swelling, Throat pain, Throat swelling, Other Respiratory: No: Cough, Dry, Shortness of breath, SOB with excertion, Wheezing, Hemoptysis, Pleuritic Pain, Sputum, Wheezing, Other Cardiovascular: No: Chest Pain, Palpitations, Orthopnea, Paroxysmal Noc. Dyspnea, Edema, Lt Headedness, Other Gastrointestinal: No: Nausea, Vomiting, Abdominal Pain, Diarrhea, Constipation, Melena, Hematochezia, Other Genitourinary: No Dysuria, No Frequency, No Incontinence, No Hematuria, No Retention, No Other Musculoskeletal: leg pain Skin: Other (Redness to right knee); Neurological: No: Weakness, Numbness, Incoordination, Change in speech, Confusion, Seizures, Other Vital Signs Vital Signs Date Time Temp Pulse Resp B/P (MAP) Pulse Ox O2 Delivery O2 Flow Rate FiO2 12/31/24 05:00 97.9 78 18 106/37 (60) 92 97.9 12/31/24 04:47 Room Air* 0 21 Physical Exam General Appearance: Alert, Oriented X3, Cooperative, mild distress HEENT: Atraumatic, PERRLA, EOMI Respiratory: Normal air movement Cardiovascular: Regular rate, Normal S1, Normal S2 Abdominal: Normal bowel sounds, Soft, No tenderness Extremities: s/p I and D of right knee. Skin: as noted above Neuro: Normal gait, Normal speech, Strength at 5/5 X4 ext Psych/Mental Status: Mental status NL, Mood NL Labs/Diagnostic Data Labs Test 12/31/24 05:14 12/31/24 04:35 12/31/24 04:28 12/30/24 21:34 Range/Units POC Glucose 145 H 70-106 mg/dl Urine Color Yellow Yellow Urine Clarity Clear Clear Urine pH 6.0 5.0-9.0 Urine Specific Edmond 1.030 1.001-1.035 Urine Protein Trace H Negative Urine Ketones Trace Negative Urine Blood Negative Negative /uL Urine Nitrite Negative Negative Urine Bilirubin Negative Negative Urine Urobilinogen Normal Negative mg/dL Urine Leukocyte Esterase 2+ Negative /uL Urine RBC 1 0 - 4 /hpf Urine Microscopic WBC 12 H 0-5 /HPF Urine Squamous Epithelial Cells Few <5 /hpf Urine Bacteria Few H None Seen /hpf Urine Yeast (Budding) Occasional None Seen /hpf Urine Glucose Normal Normal mg/dL White Blood Count 11.0 H 4.4-10.8 10^3/uL Red Blood Count 4.64 4.0-5.20 10^6/uL Hemoglobin 13.2 12.2-16.2 g/dL Hematocrit 39.8 36.0-46.0 % Mean Corpuscular Volume 85.9 80.0-100.0 fL Mean Corpuscular Hemoglobin 28.5 28.0-32.0 pg Mean Corpuscular Hemoglobin Concent 33.1 32.0-36.0 g/dL Red Cell Distribution Width 16.3 H 11.8-14.3 % Platelet Count 419 140-450 10^3/uL Mean Platelet Volume 6.9 6.9-10.8 fL Neutrophils (%) (Auto) 59.4 37.0-80.0 % Lymphocytes (%) (Auto) 29.4 10.0-50.0 % Monocytes (%) (Auto) 8.6 0.0-12.0 % Eosinophils (%) (Auto) 1.6 0.0-7.0 % Basophils (%) (Auto) 1.0 0.0-2.0 % Neutrophils # (Auto) 6.5 1.6-8.6 10 ^3/uL Lymphocytes # (Auto) 3.2 0.4-5.4 10 ^3/uL Monocytes # (Auto) 0.9 0-1.3 10 ^3/uL Eosinophils # (Auto) 0.2 0-0.8 10 ^3/uL Basophils # (Auto) 0.1 0-0.2 10 ^3/uL Nucleated Red Blood Cells 0.1 % Sodium Level 137 136-145 mmol/L Potassium Level 4.3 3.5-5.1 mmol/L Chloride Level 97 L 98-107 mmol/L Carbon Dioxide Level 27 20-31 mmol/L Anion Gap 13 5-15 Blood Urea Nitrogen 18 9-23 mg/dL Creatinine 1.02 0.550-1.02 mg/dL Glomerular Filtration Rate Calc 57 >90 mL/min BUN/Creatinine Ratio 17.6 10.0-20.0 Serum Glucose 128 H 74-106 mg/dL Calcium Level 9.4 8.7-10.4 mg/dL Prothrombin Time 10.6 9.3-11.8 sec Prothrombin Time INR 1.00 0.9-1.15 Test 12/30/24 17:29 12/30/24 15:35 Range/Units Lactic Acid Level 1.8 0.4-2.0 mmol/L Erythrocyte Sedimentation Rate 30 H 0-20 mm/hr Total Bilirubin 0.4 0.2-1.0 mg/dL Aspartate Amino Transferase (AST) 17 13-40 U/L Alanine Aminotransferase (ALT) 19 7-40 U/L Alkaline Phosphatase 91 46-116 U/L C-Reactive Protein High Sensitivity 2.21 H <1.0 mg/dL Total Protein 7.8 5.7-8.2 g/dL Albumin 4.5 3.2-4.8 g/dL Assessment Patient is a [id number] presented to the hospital with: Right knee prosthetic joint infection HX right knee arthroplasty Diabetes Mellitus drug allergies Recommendations: s/p explant of prosthesis, planned for two stage procedure.. recommend starting IV Vancomycin per pharmacy. dc levofloxacin follow OR cultures, will taper antibiotics based on if its MSSA/ MRSA She is Cephalexin allergy picc line Orthopedic surgeon on board Chest x-ray showed No acute cardiopulmonary disease. Knee x-ray showed Hardware status post total knee arthroplasty without evidence of complication. There is no evidence of acute fracture or dislocation. Moderate suprapatellar effusion. Soft tissues are otherwise unremarkable. prognosis gaurded Thank you for consult. Plan discussed with: Patient, Other NGUYEN MCKINLEY MD Dec 31, 2024 09:49
[2024-12-31] MEDS: PANTOPRAZOLE 40 MG/10 ML VIAL INJ IV SCH (10:00)
[2024-12-31] MEDS: ENOXAPARIN SOD 40 MG/0.4 ML SYRINGE SC SCH (10:00)
[2024-12-31] MEDS ORDERED: BUPIVACAINE/DEXTROSE MPF 0.75% 2 ML AMP IT ONE (10:28)
[2024-12-31] MEDS: CLINDAMYCIN 600MG IV 50 ML IV ONE (11:07)
--- NOTE | 2024-12-31 12:16 | DVHOP2 ---
Discharge Orders Discharge Orders DISCHARGE WHEN CRITERIA MET DISCHARGE WHEN CRITERIA MET. Operative Rep- Outpatient Operative Report PRE-OP DIAGNOSIS: Infected right total knee arthroplasty POST-OP DIAGNOSIS: Same Keller protocol followed: Yes ESTIMATED BLOOD LOSS: 50 cc PROCEDURE: Revision right total knee arthroplasty with explantation of tibial and femoral component Application of negative pressure wound VAC Revision scar arthrotomy greater than 20 cm Complex wound closure 15 cm subcutaneous SURGEON/CONVERTING OPERATOR: Donnell CAMEJO ANESTHESIA: Spinal ANESTHESIOLOGIST: ODELL INFORMED CONSENT: Informed Consent: Discussed all inherent risks, complications, and alternatives treatments with the patient. Patient has agreed to proceed with the procedure. I have reviewed all pre-operative assessments including Labs, EKGs, and radiographic images that has been performed. Patient is an appropriate candidate for the outpatient surgical center procedure. ++ the patient was educated on the fact that the patient has an infection in the right total knee arthroplasty. It was unclear with the patient attained the inf ection however the patient does not infection of the right total knee arthroplasty with the possibility of aspiration of Staph. Based on these parameters, the patient was educated on the fact that the patient will need a 2 stage explant based on the unclear duration of the infection based on these parameters the patient is a 20 arthroplasty approximately 9 years ago the patient understands the risks benefits of surgical and nonsurgical treatment of the right lower extremity she understood that it is a little be 2 stage revision index the explantation and revision total knee arthroplasty the patient is seen in the preoperative area of the right lower extremity was marked the patient was brought to operative suite general anesthesia was then induced time-out was hospital protocol the right lower extremity was prepped and draped in the standard fashion clindamycin based on an Ancef allergy was given for infectious prophylaxis and TXA was given for bleeding prophylaxis. Time-out was performed to hospital protocol incision was made through skin subcu tissue the Ethibond sutures were then visualized through the old medial parapatellar arthrotomy a medial release was then completed there was significant scar tissue on the medial aspect all the fat pad was removed on the medial and lateral side of the patellar tendon was carefully retracted and a medial release was then completed with the osteotomes were used to remove the polyethylene liner once I was then completed using a reset saw and a single bladed to prevent any arterial injury posteriorly and then using sequential osteotomes and sagittal saw and a reset saw and flexible osteotomes with minimal bone loss the femoral component of the tibial component were carefully removed once it was then done the bones are access cement was done with a reverse swollen to remove the cement in the femoral and tibial canals cultures were then taken of the knee soft tissue was then also center of the knee once I was then completed in the appropriate manner Betadine was then used after the excess cement was carefully removed with the patella button also being carefully removed with the excess cement with Betadine scrub brush was scrubbing of the bone it interface for approximately 10 minutes once I was then done bone dowels were then created with the 4 g of vancomycin and gentamicin on the back table with bone down to be placed along with the antibiotic beads with 1 g of vancomycin once it was then done of the knee was irrigated customized saline once it was then irrigated with a copiously with saline and I then I placed of the of the antibiotic dowels in the long with the antibiotic beads in the canals once it was then done with 12 g of vancomycin and gentamicin along with an am and methylene blue to make the cement more viscous with 2 packets of Palacos cement with gentamicin I mixed all the antibiotics with the and then placed it into a CR poly with the school bus cuff the undersurface of the C-arm polys so it would not interdigitate with the cement mantle the once I was then done I opened a 5 femur and a 4 tibia and I placed it into the component I was irrigated of the knee with copiously with saline along with Irrisept followed by mortise saline significant antibiotic beads were then placed on the revision scar arthrotomy greater than 10 cm were then completed once it was then done with a 1. Stratafix 0 PDS followed by 2-0 PDS followed by zoey. With a negative pressure wound VAC. The patient will be weight- bearing as tolerated on the right lower extremity PT OT out of bed daily we will follow antibiotic cultures. The patient will need some IV antibiotics for 6 weeks' time as per Infectious Disease. The patient will need a sed rate CRP every 2 weeks. The patient will need an alpha defense and test after the patient has stopped taking antibiotics 2 weeks after the antibiotics have been stopped. DONNELL DURAN MD Dec 31, 2024 12:16
[2024-12-31] MEDS ORDERED: HYDROmorphone HCL 2 MG/ML VL/or syr IV PRN (13:15)
[2024-12-31] MEDS ORDERED: ONDANSETRON HCL 4 MG/2 ML VIAL IV PRN (13:15)
[2024-12-31] MEDS ORDERED: NALOXONE HCL 0.4 MG/ML VIAL IV PRN (13:15)
[2024-12-31] MEDS ORDERED: fentaNYL CITRATE 100 MCG/2 ML VL IV PRN (13:15)
[2024-12-31] MEDS ORDERED: hydrALAZINE HCL 20 MG/ML VL IV PRN (13:15)
[2024-12-31] MEDS ORDERED: FLUMAZENIL 0.1 MG/ML INJ 10ML MDV IV PRN (13:15)
[2024-12-31] MEDS: GABAPENTIN 300 MG CAP ONE (15:55)
[2024-12-31] MEDS: ACETAMINOPHEN IV 100 ML IV ONE (15:55)
[2024-12-31] MEDS: BUPIVACAINE 0.25% INJ 50ML VIAL ONE (15:56)
[2024-12-31] MEDS: BUPIVACAINE HCL 50 ML ONE (15:56)
[2024-12-31] MEDS: METHYLENE BLUE 0.5% 5MG/ML 10ml AMP IV ONE (15:57)
[2024-12-31] MEDS: InsuLIN REG 1unit/0.01ml Soln (100units/ml) ONE (15:57)
[2024-12-31] MEDS: HYDROmorphone HCL 2 MG/ML VL/or syr IV PRN (23:38)
[2025-01-01] VITALS (8 sets, daily range): BP systolic 114–166; BP diastolic 65–82; PULSE 60–72; RESP 16–18; TEMP 97.3–98.5; O2SAT 95–98
[2025-01-01 06:49] LABS: Hematocrit 32.7 % (36.0-46.0); Hemoglobin 10.9 g/dL (12.2-16.2); Mean Corpuscular Hemoglobin 28.5 pg (28.0-32.0); Mean Corpuscular Volume 85.8 fL (80.0-100.0); Nucleated Red Blood Cells % 0.1 %
[2025-01-01 07:40] LABS: Chloride 98 mmol/L (98-107); Potassium 4.9 mmol/L (3.5-5.1); Sodium 138 mmol/L (136-145)
[2025-01-01 07:41] LABS: Anion Gap 10 (5-15); Calcium 8.8 mg/dL (8.7-10.4); Carbon Dioxide 30 mmol/L (20-31)
[2025-01-01 07:46] LABS: BUN/Creatinine Ratio 22.7 (10.0-20.0); Blood Urea Nitrogen 20 mg/dL (9-23)
[2025-01-01 07:50] LABS: Glucose 163 mg/dL (74-106)
--- NOTE | 2025-01-01 08:15 | DVHPN2 ---
Progress Note Date Seen: Jan 01, 2025 Medical Necessity Reason Pt with a Central, PICC or Fol: No Subjective Patient reports: No new complaints Objective vital signs Vital Sign Date Time Temp Pulse Resp B/P (MAP) Pulse Ox O2 Delivery O2 Flow Rate FiO2 01/01/25 05:00 98.5 67 16 140/76 (97) 97 98.5 12/31/24 20:00 Nasal Cannula* 3 32 Total Intake and Output 12/31/24 12/31/24 01/01/25 15:00 23:00 07:00 Intake Total 150 ml 525 ml 400 ml Balance 150 ml 525 ml 400 ml medications Current Medications Medications Dose Ordered Sig/Esther Route Start Time Stop Time Status Last Admin Dose Admin Acetaminophen 650 mg Q6HP PRN PO 12/30/24 20:45 Ondansetron HCl 4 mg Q4HP PRN IV 12/30/24 20:45 Enoxaparin Sodium 40 mg DAILY SC 12/31/24 10:00 Nitroglycerin 0.4 mg Q5MINP PRN SL 12/30/24 20:45 Morphine Sulfate 2 mg Q30M PRN IV 12/30/24 20:45 Levofloxacin 50 ml @ 50 mls/hr DAILY IV 12/31/24 10:00 Diagnostic Test (Pha) 1 strip Q6HR 12/31/24 00:00 01/01/25 06:42 1 STRIP Insulin Human Regular Q6HR SC 12/31/24 00:00 01/01/25 06:47 3 UNITS Dextrose 50 ml UD PRN IV 12/30/24 20:45 Pantoprazole Sodium 40 mg DAILY IV 12/31/24 10:00 Oxycodone HCl 10 mg ONCE PRN PO 12/31/24 13:15 12/31/24 17:20 10 MG Hydromorphone HCl 0.4 mg Q4HPRN PRN IV 12/31/24 18:30 12/31/24 23:38 0.4 MG Examination: GENERAL:Normal, MSK:Abnormal laboratory and microbiology Laboratory Tests 01/01/25 05:33 Test 01/01/25 05:33 Range/Units Serum Glucose 163 H 74-106 mg/dL Problem List/Assessment/Plan Problem List/Assessment/Plan 79 year old female who is s/p right knee explant with abx spacer POD 1 1. Pain control 2. DVT ppx 3. continue with IV abx 4. PICC line consult pending 5. Infectious disease consult pending 6. WBAT 7. PT as tolerated Plan discussed with: Patient Date of Service: Jan 01, 2025 Billing Provider: SAMUEL GLEASON MD Common Visit Codes: NOT BILLABLE DEEPAK CHRISTIAN NP Jan 01, 2025 08:15
[2025-01-01] MEDS ORDERED: VANCOMYCIN PER PHARMACY 0 MG IV SCH (11:30)
--- NOTE | 2025-01-01 11:46 | DVHPN2 ---
Progress Note - Dictate Date Seen: Jan 01, 2025 Medical Necessity Reason Pt with a Central, PICC or Fol: No Subjective s/p explant knee pain vital signs Vital Sign Date Time Temp Pulse Resp B/P (MAP) Pulse Ox O2 Delivery O2 Flow Rate FiO2 01/01/25 09:00 97.3 63 16 114/65 (81) 98 97.3 12/31/24 20:00 Nasal Cannula* 3 32 Total Intake and Output 12/31/24 12/31/24 01/01/25 15:00 23:00 07:00 Intake Total 150 ml 525 ml 400 ml Balance 150 ml 525 ml 400 ml medications Current Medications Medications Dose Ordered Sig/Esther Route Start Time Stop Time Status Last Admin Dose Admin Acetaminophen 650 mg Q6HP PRN PO 12/30/24 20:45 Ondansetron HCl 4 mg Q4HP PRN IV 12/30/24 20:45 Enoxaparin Sodium 40 mg DAILY SC 12/31/24 10:00 01/01/25 10:18 40 MG Nitroglycerin 0.4 mg Q5MINP PRN SL 12/30/24 20:45 Morphine Sulfate 2 mg Q30M PRN IV 12/30/24 20:45 Diagnostic Test (Pha) 1 strip Q6HR 12/31/24 00:00 01/01/25 06:42 1 STRIP Insulin Human Regular Q6HR SC 12/31/24 00:00 01/01/25 06:47 3 UNITS Dextrose 50 ml UD PRN IV 12/30/24 20:45 Pantoprazole Sodium 40 mg DAILY IV 12/31/24 10:00 01/01/25 10:18 40 MG Oxycodone HCl 10 mg ONCE PRN PO 12/31/24 13:15 12/31/24 17:20 10 MG Hydromorphone HCl 0.4 mg Q4HPRN PRN IV 12/31/24 18:30 12/31/24 23:38 0.4 MG Vancomycin HCl 0 ml @ 0 mls/hr UD IV 01/01/25 11:30 UNV objective General alert and oriented HEENT: Atraumatic Neck: No swelling Lungs: Equal air entry and clear to auscultation Cardiovascular: S2 heard no murmur Abdomen: Soft nontender, no organomegaly, nondistended Neuro: Alert and oriented, no focal deficit Psych: Normal mood and affect knee: s/p I and D, post op dressing laboratory and microbiology Laboratory Tests 01/01/25 05:33 Test 01/01/25 05:33 Range/Units Serum Glucose 163 H 74-106 mg/dL Assessment/Plan Patient is a [id number]-female presented to the hospital with: Right knee prosthetic joint infection HX right knee arthroplasty Diabetes Mellitus drug allergies Recommendations: s/p explant of prosthesis, planned for two stage procedure.. ordered IV Vancomycin per pharmacy. dcd levofloxacin follow OR cultures, RN tried reaching out to get report of cultures from clinic but wasn't successful. will try clinic She is Cephalexin allergy picc line Orthopedic surgeon on board Chest x-ray showed No acute cardiopulmonary disease. Knee x-ray showed Hardware status post total knee arthroplasty without evidence of complication. There is no evidence of acute fracture or dislocation. Moderate suprapatellar effusion. Soft tissues are otherwise unremarkable. prognosis gaurded Total time spent 50 minutes during this encounter. Thank you for consult. Plan discussed with: Other NGUYEN MCKINLEY MD Jan 01, 2025 11:46
[2025-01-01] MEDS: VANCOMYCIN 1GM/250ML KIT 250 ML IV ONE (12:35)
--- NOTE | 2025-01-01 16:14 | DVHPN2 ---
Progress Note - Dictate Date Seen: Jan 01, 2025 Medical Necessity Reason Pt with a Central, PICC or Fol: No Subjective Patient underwent a successful revision of infected right total knee arthroplasty. Cultures from the surgery of the knee results are still pending. Patient is scheduled to undergo PICC line today. Pain is controlled. Ambulated with physical therapy. vital signs Vital Sign Date Time Temp Pulse Resp B/P (MAP) Pulse Ox O2 Delivery O2 Flow Rate FiO2 01/01/25 13:00 97.8 67 17 117/69 (85) 98 97.8 01/01/25 08:00 Nasal Cannula* 3 32 Total Intake and Output 12/31/24 12/31/24 01/01/25 15:00 23:00 07:00 Intake Total 150 ml 525 ml 400 ml Balance 150 ml 525 ml 400 ml medications Current Medications Medications Dose Ordered Sig/Esther Route Start Time Stop Time Status Last Admin Dose Admin Acetaminophen 650 mg Q6HP PRN PO 12/30/24 20:45 Ondansetron HCl 4 mg Q4HP PRN IV 12/30/24 20:45 Enoxaparin Sodium 40 mg DAILY SC 12/31/24 10:00 01/01/25 10:18 40 MG Nitroglycerin 0.4 mg Q5MINP PRN SL 12/30/24 20:45 Morphine Sulfate 2 mg Q30M PRN IV 12/30/24 20:45 Diagnostic Test (Pha) 1 strip Q6HR 12/31/24 00:00 01/01/25 12:16 1 STRIP Insulin Human Regular Q6HR SC 12/31/24 00:00 01/01/25 12:17 2 UNITS Dextrose 50 ml UD PRN IV 12/30/24 20:45 Pantoprazole Sodium 40 mg DAILY IV 12/31/24 10:00 01/01/25 10:18 40 MG Oxycodone HCl 10 mg ONCE PRN PO 12/31/24 13:15 12/31/24 17:20 10 MG Hydromorphone HCl 0.4 mg Q4HPRN PRN IV 12/31/24 18:30 12/31/24 23:38 0.4 MG Vancomycin HCl 0 ml @ 0 mls/hr UD IV 01/01/25 11:30 Vancomycin HCl 250 ml @ 200 mls/hr DAILY@1200 IV 01/02/25 12:00 objective Alert awake oriented x3. Comfortable in bed without any acute distress. HEENT neck supple no JVD pupils equal round react to light. Heart regular rate and rhythm S1-S2 no murmurs. Lungs fair air movement chest equal expansion no rales wheezes. Abdomen soft obese positive bowel sounds. Extremities no edema positive pulses. Right knee is covered with a dressing. laboratory and microbiology Laboratory Tests 01/01/25 05:33 Test 01/01/25 05:33 Range/Units Serum Glucose 163 H 74-106 mg/dL Assessment/Plan Status post revision of right knee arthroplasty due to suspected infection Septic knee joint Diabetes mellitus type 2 Obesity syndrome with a BMI 32 We will have PICC line placed today and prepare her for long-term IV antibiotics for knee infection per recommendations from Infectious Disease physician. Meantime continue current pain regimen laxatives. Continue physical therapy. Continue rest of supportive care and treatment. Further clinical management per clinical course. Discussed with the patient and nurse regarding care plan. Plan discussed with: Patient CARMINE HOWARD MD Jan 01, 2025 16:14
[2025-01-01] MEDS ORDERED: LIDOCAINE 1% (LOCAL ANESTH.) PF 5ml SDV ID ONE (17:00)
[2025-01-01] MEDS: SODIUM CHLOR 0.9% PF (SALINE LOCK) 10ML VIAL/SYR IV SCH (21:14)
[2025-01-02] VITALS (9 sets, daily range): BP systolic 111–159; BP diastolic 59–88; PULSE 63–73; RESP 16–18; TEMP 97.5–98.4; O2SAT 90–97
[2025-01-02 06:19] LABS: Hematocrit 33.2 % (36.0-46.0); Hemoglobin 10.9 g/dL (12.2-16.2); Mean Corpuscular Hemoglobin 28.4 pg (28.0-32.0); Mean Corpuscular Volume 86.2 fL (80.0-100.0); Nucleated Red Blood Cells % 0.0 %
[2025-01-02 06:38] LABS: Anion Gap 9 (5-15); Carbon Dioxide 31 mmol/L (20-31); Chloride 100 mmol/L (98-107); Potassium 4.4 mmol/L (3.5-5.1); Sodium 140 mmol/L (136-145)
[2025-01-02 06:40] LABS: Calcium 8.9 mg/dL (8.7-10.4)
[2025-01-02 06:45] LABS: BUN/Creatinine Ratio 18.6 (10.0-20.0); Blood Urea Nitrogen 16 mg/dL (9-23)
[2025-01-02 06:50] LABS: Glucose 122 mg/dL (74-106)
--- NOTE | 2025-01-02 08:10 | DVHPN2 ---
Progress Note Date Seen: Jan 02, 2025 Medical Necessity Reason Pt with a Central, PICC or Fol: No Subjective Patient reports: No new complaints Objective vital signs Vital Sign Date Time Temp Pulse Resp B/P (MAP) Pulse Ox O2 Delivery O2 Flow Rate FiO2 01/02/25 05:00 97.5 63 18 143/88 (106) 96 97.5 01/01/25 20:00 Nasal Cannula* 3 32 Total Intake and Output 01/01/25 01/01/25 01/02/25 14:59 22:59 06:59 Intake Total 750 ml 440 ml Balance 750 ml 440 ml medications Current Medications Medications Dose Ordered Sig/Esther Route Start Time Stop Time Status Last Admin Dose Admin Acetaminophen 650 mg Q6HP PRN PO 12/30/24 20:45 Ondansetron HCl 4 mg Q4HP PRN IV 12/30/24 20:45 Enoxaparin Sodium 40 mg DAILY SC 12/31/24 10:00 01/01/25 10:18 40 MG Nitroglycerin 0.4 mg Q5MINP PRN SL 12/30/24 20:45 Morphine Sulfate 2 mg Q30M PRN IV 12/30/24 20:45 Diagnostic Test (Pha) 1 strip Q6HR 12/31/24 00:00 01/02/25 06:00 1 STRIP Insulin Human Regular Q6HR SC 12/31/24 00:00 01/02/25 07:17 2 UNITS Dextrose 50 ml UD PRN IV 12/30/24 20:45 Pantoprazole Sodium 40 mg DAILY IV 12/31/24 10:00 01/01/25 10:18 40 MG Oxycodone HCl 10 mg ONCE PRN PO 12/31/24 13:15 12/31/24 17:20 10 MG Hydromorphone HCl 0.4 mg Q4HPRN PRN IV 12/31/24 18:30 01/02/25 00:28 0.4 MG Vancomycin HCl 0 ml @ 0 mls/hr UD IV 01/01/25 11:30 Vancomycin HCl 250 ml @ 200 mls/hr DAILY@1200 IV 01/02/25 12:00 Sodium Chloride 10 ml QSHIFT@ IV 01/01/25 22:00 01/01/25 21:14 10 ML Examination: GENERAL:Normal, MSK:Abnormal laboratory and microbiology Laboratory Tests 01/02/25 05:55 Test 01/02/25 05:55 Range/Units Serum Glucose 122 H 74-106 mg/dL Microbiology Date/Time Source Procedure Growth Status 12/31/24 11:49 Knee Right Gram Stain - Final Resulted 12/31/24 11:49 Knee Right Anaerobic Culture - Preliminary Resulted 12/31/24 11:49 Knee Right Aerobic Culture - Preliminary Resulted Problem List/Assessment/Plan Problem List/Assessment/Plan 79 year old female who is s/p right knee explant with abx spacer POD 2 1. Pain control 2. DVT ppx 3. continue with IV abx 4. PICC line placed yesterday and patient doing well 5. Infectious disease consult pending, if MD requires documents please get fax number and our office can fax pre-op aspiration results 6. WBAT 7. PT as tolerated 8. patient is clear for discharge from orthopedic standpoint 9. prescriptions for percocet and aspirin sent to [facility] in [place] 10. follow up in 2 weeks on 01/16/2025 at 8:00 Plan discussed with: Patient Date of Service: Jan 02, 2025 Billing Provider: SAMUEL GLEASON MD Common Visit Codes: NOT BILLABLE DEEPAK CHRISTIAN NP Jan 02, 2025 08:10
--- NOTE | 2025-01-02 10:48 | DVHPN2 ---
Progress Note - Dictate Date Seen: Jan 02, 2025 Medical Necessity Reason Pt with a Central, PICC or Fol: No Subjective s/p explant knee pain vital signs Vital Sign Date Time Temp Pulse Resp B/P (MAP) Pulse Ox O2 Delivery O2 Flow Rate FiO2 01/02/25 09:00 98.0 71 18 111/71 (84) 93 98.0 01/01/25 20:00 Nasal Cannula* 3 32 Total Intake and Output 01/01/25 01/01/25 01/02/25 15:00 23:00 07:00 Intake Total 750 ml 440 ml Balance 750 ml 440 ml medications Current Medications Medications Dose Ordered Sig/Esther Route Start Time Stop Time Status Last Admin Dose Admin Acetaminophen 650 mg Q6HP PRN PO 12/30/24 20:45 Ondansetron HCl 4 mg Q4HP PRN IV 12/30/24 20:45 Enoxaparin Sodium 40 mg DAILY SC 12/31/24 10:00 01/01/25 10:18 40 MG Nitroglycerin 0.4 mg Q5MINP PRN SL 12/30/24 20:45 Morphine Sulfate 2 mg Q30M PRN IV 12/30/24 20:45 Diagnostic Test (Pha) 1 strip Q6HR 12/31/24 00:00 01/02/25 06:00 1 STRIP Insulin Human Regular Q6HR SC 12/31/24 00:00 01/02/25 07:17 2 UNITS Dextrose 50 ml UD PRN IV 12/30/24 20:45 Pantoprazole Sodium 40 mg DAILY IV 12/31/24 10:00 01/01/25 10:18 40 MG Oxycodone HCl 10 mg ONCE PRN PO 12/31/24 13:15 12/31/24 17:20 10 MG Hydromorphone HCl 0.4 mg Q4HPRN PRN IV 12/31/24 18:30 01/02/25 00:28 0.4 MG Vancomycin HCl 0 ml @ 0 mls/hr UD IV 01/01/25 11:30 Vancomycin HCl 250 ml @ 200 mls/hr DAILY@1200 IV 01/02/25 12:00 Sodium Chloride 10 ml QSHIFT@,22 IV 01/01/25 22:00 01/01/25 21:14 10 ML objective General alert and oriented HEENT: Atraumatic Neck: No swelling Lungs: Equal air entry and clear to auscultation Cardiovascular: S2 heard no murmur Abdomen: Soft nontender, no organomegaly, nondistended Neuro: Alert and oriented, no focal deficit Psych: Normal mood and affect knee: s/p I and D, post op dressing laboratory and microbiology Laboratory Tests 01/02/25 05:55 Test 01/02/25 05:55 Range/Units Serum Glucose 122 H 74-106 mg/dL Assessment/Plan Patient is a [id number]z-female presented to the hospital with: 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 cont IV Vancomycin per pharmacy. follow OR cultures shows no growth here for [address] Colon. The cultures reviewed shows Staphylococcus Epidermidis S to vancomycin, Doxycycline and Levofloxacin She is Cephalexin allergy picc line is placed. SW consult placed. Arrange IV Vancomycin 1.25g daily managed level by pharmacy, goal trough 10-15, Weekly labs cbc, cmp , vancomycin trough. fax to [phone] arrange Home health follow up with ID as outpatient in 2 weeks follow up with Ortho as oupt Chest x-ray showed No acute cardiopulmonary disease. Knee x-ray showed Hardware status post total knee arthroplasty without evidence of complication. There is no evidence of acute fracture or dislocation. Moderate suprapatellar effusion. Soft tissues are otherwise unremarkable. Total time spent 50 minutes during the encounter Thank you for consult. Plan discussed with: Patient NGUYEN MCKINLEY MD Jan 02, 2025 10:48
[2025-01-02] MEDS: VANCOMYCIN 1.25GM/250ML 250 ML IV SCH (12:19)
--- NOTE | 2025-01-02 14:37 | DVHPN2 ---
Progress Note - Dictate Date Seen: Jan 02, 2025 Medical Necessity Reason Pt with a Central, PICC or Fol: No Subjective Still waiting for final cultures to come back from right knee surgery. Participating with the physical therapy. Pain is controlled. vital signs Vital Sign Date Time Temp Pulse Resp B/P (MAP) Pulse Ox O2 Delivery O2 Flow Rate FiO2 01/02/25 11:10 78 20 125/68 01/02/25 09:00 98.0 93 98.0 01/02/25 08:00 Nasal Cannula* 3 32 Total Intake and Output 01/01/25 01/01/25 01/02/25 15:00 23:00 07:00 Intake Total 750 ml 440 ml Balance 750 ml 440 ml medications Current Medications Medications Dose Ordered Sig/Esther Route Start Time Stop Time Status Last Admin Dose Admin Acetaminophen 650 mg Q6HP PRN PO 12/30/24 20:45 Ondansetron HCl 4 mg Q4HP PRN IV 12/30/24 20:45 Enoxaparin Sodium 40 mg DAILY SC 12/31/24 10:00 01/02/25 10:32 40 MG Nitroglycerin 0.4 mg Q5MINP PRN SL 12/30/24 20:45 Morphine Sulfate 2 mg Q30M PRN IV 12/30/24 20:45 Diagnostic Test (Pha) 1 strip Q6HR 12/31/24 00:00 01/02/25 12:10 1 STRIP Insulin Human Regular Q6HR SC 12/31/24 00:00 01/02/25 12:14 2 UNITS Dextrose 50 ml UD PRN IV 12/30/24 20:45 Pantoprazole Sodium 40 mg DAILY IV 12/31/24 10:00 01/02/25 10:32 40 MG Oxycodone HCl 10 mg ONCE PRN PO 12/31/24 13:15 12/31/24 17:20 10 MG Hydromorphone HCl 0.4 mg Q4HPRN PRN IV 12/31/24 18:30 01/02/25 10:40 0.4 MG Vancomycin HCl 0 ml @ 0 mls/hr UD IV 01/01/25 11:30 Vancomycin HCl 250 ml @ 200 mls/hr DAILY@1200 IV 01/02/25 12:00 01/02/25 12:19 200 MLS/HR Sodium Chloride 10 ml QSHIFT@ IV 01/01/25 22:00 01/02/25 10:00 10 ML objective Alert awake oriented x3. Comfortable in bed without any acute distress. HEENT neck supple no JVD pupils equal round react to light. Heart regular rate and rhythm S1-S2 no murmurs. Lungs fair air movement chest equal expansion no rales wheezes. Abdomen soft obese positive bowel sounds. Extremities no edema positive pulses. Right knee is covered with a dressing. laboratory and microbiology Laboratory Tests 01/02/25 05:55 Test 01/02/25 05:55 Range/Units Serum Glucose 122 H 74-106 mg/dL Assessment/Plan Status post revision of right knee arthroplasty due to suspected infection Septic knee joint Diabetes mellitus type 2 Obesity syndrome with a BMI 32 PICC line is placed for long-term IV antibiotics. Waiting for final cultures to come back so that infectious disease physician can recommend outpatient antibiotics. Monitor overnight and consider discharge home tomorrow. Discussed with the patient Plan discussed with: Patient, Other CARMINE HOWARD MD Jan 02, 2025 14:37
[2025-01-03 01:00] VITALS: BP 130/71; PULSE 67; RESP 16; TEMP 98.1; O2SAT 96
[2025-01-03 05:00] VITALS: BP 147/74; PULSE 68; RESP 18; TEMP 98.1; O2SAT 98
[2025-01-03 08:00] VITALS: PULSE 72; PULSE 74; RESP 16
[2025-01-03 08:43] LABS: Potassium 4.0 mmol/L (3.5-5.1); Sodium 139 mmol/L (136-145)
[2025-01-03 08:44] LABS: Anion Gap 9 (5-15)
[2025-01-03 08:45] LABS: Calcium 9.1 mg/dL (8.7-10.4)
[2025-01-03 08:47] LABS: Hematocrit 34.0 % (36.0-46.0); Hemoglobin 11.6 g/dL (12.2-16.2); Mean Corpuscular Hemoglobin 29.4 pg (28.0-32.0); Mean Corpuscular Volume 86.1 fL (80.0-100.0); Nucleated Red Blood Cells % 0.0 %
[2025-01-03 08:49] LABS: BUN/Creatinine Ratio 17.0 (10.0-20.0); Blood Urea Nitrogen 15 mg/dL (9-23)
[2025-01-03 08:52] LABS: Carbon Dioxide 34 mmol/L (20-31); Chloride 96 mmol/L (98-107); Glucose 124 mg/dL (74-106)
[2025-01-03 09:00] VITALS: BP 141/89; PULSE 70; RESP 18; TEMP 98.8; O2SAT 96
--- NOTE | 2025-01-03 11:35 | DVHPN2 ---
Progress Note - Dictate Date Seen: Jan 03, 2025 Medical Necessity Reason Pt with a Central, PICC or Fol: No Subjective s/p explant knee pain improved vital signs Vital Sign Date Time Temp Pulse Resp B/P (MAP) Pulse Ox O2 Delivery O2 Flow Rate FiO2 01/03/25 09:00 98.8 70 18 141/89 (106) 96 98.8 01/03/25 08:00 Nasal Cannula* 3 32 Total Intake and Output 01/02/25 01/02/25 01/03/25 15:00 23:00 07:00 Intake Total 600 ml 1080 ml 340 ml Balance 600 ml 1080 ml 340 ml medications Current Medications Medications Dose Ordered Sig/Esther Route Start Time Stop Time Status Last Admin Dose Admin Acetaminophen 650 mg Q6HP PRN PO 12/30/24 20:45 Ondansetron HCl 4 mg Q4HP PRN IV 12/30/24 20:45 Enoxaparin Sodium 40 mg DAILY SC 12/31/24 10:00 01/03/25 10:13 40 MG Nitroglycerin 0.4 mg Q5MINP PRN SL 12/30/24 20:45 Morphine Sulfate 2 mg Q30M PRN IV 12/30/24 20:45 Diagnostic Test (Pha) 1 strip Q6HR 12/31/24 00:00 01/03/25 06:41 1 STRIP Insulin Human Regular Q6HR SC 12/31/24 00:00 01/03/25 06:42 2 UNITS Dextrose 50 ml UD PRN IV 12/30/24 20:45 Pantoprazole Sodium 40 mg DAILY IV 12/31/24 10:00 01/03/25 10:13 40 MG Oxycodone HCl 10 mg ONCE PRN PO 12/31/24 13:15 12/31/24 17:20 10 MG Hydromorphone HCl 0.4 mg Q4HPRN PRN IV 12/31/24 18:30 01/03/25 06:41 0.4 MG Vancomycin HCl 0 ml @ 0 mls/hr UD IV 01/01/25 11:30 Vancomycin HCl 250 ml @ 200 mls/hr DAILY@1200 IV 01/02/25 12:00 01/02/25 12:19 200 MLS/HR Sodium Chloride 10 ml QSHIFT@ IV 01/01/25 22:00 01/03/25 10:14 10 ML objective General alert and oriented HEENT: Atraumatic Neck: No swelling Lungs: Equal air entry and clear to auscultation Cardiovascular: S2 heard no murmur Abdomen: Soft nontender, no organomegaly, nondistended Neuro: Alert and oriented, no focal deficit Psych: Normal mood and affect knee: s/p I and D, post op dressing laboratory and microbiology Laboratory Tests 01/03/25 07:34 Test 01/03/25 07:34 Range/Units Serum Glucose 124 H 74-106 mg/dL Assessment/Plan Patient is a [id number] presented to the hospital with: 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 cont IV Vancomycin per pharmacy. follow OR cultures shows no growth here for [address] Colon. The cultures reviewed shows Staphylococcus Epidermidis S to vancomycin, Doxycycline and Levofloxacin She is Cephalexin allergy picc line is placed. SW consult placed. Arrange IV Vancomycin 1.25g daily managed level by pharmacy, goal trough 10-15, Weekly labs cbc, cmp , vancomycin trough. fax to [phone] arrange Home health follow up with ID as outpatient in 2 weeks follow up with Ortho as oupt Chest x-ray showed No acute cardiopulmonary disease. Knee x-ray showed Hardware status post total knee arthroplasty without evidence of complication. There is no evidence of acute fracture or dislocation. Moderate suprapatellar effusion. Soft tissues are otherwise unremarkable. Total time spent 50 minutes during the encounter Thank you for consult. Plan discussed with: Patient NGUYEN MCKINLEY MD Jan 03, 2025 11:35
[2025-01-03 12:36] VITALS: BP 140/69; PULSE 72; RESP 18; TEMP 98.4; O2SAT 93
--- NOTE | 2025-01-03 12:45 | DVHDS2 ---
Discharge Summary Date of Admission Dec 30, 2024 at 20:40 Date of Discharge: Jan 03, 2025 Labs/Diagnostic Data: Laboratory Results Test 01/03/25 11:39 01/03/25 07:34 12/31/24 04:35 12/30/24 21:34 POC Glucose 164 mg/dl (70-106) White Blood Count 10.5 10^3/uL (4.4-10.8) Red Blood Count 3.95 10^6/uL (4.0-5.20) Hemoglobin 11.6 g/dL (12.2-16.2) Hematocrit 34.0 % (36.0-46.0) Mean Corpuscular Volume 86.1 fL (80.0-100.0) Mean Corpuscular Hemoglobin 29.4 pg (28.0-32.0) Mean Corpuscular Hemoglobin Concent 34.1 g/dL (32.0-36.0) Red Cell Distribution Width 16.3 % (11.8-14.3) Platelet Count 336 10^3/uL (140-450) Mean Platelet Volume 6.7 fL (6.9-10.8) Neutrophils (%) (Auto) 64.5 % (37.0-80.0) Lymphocytes (%) (Auto) 25.0 % (10.0-50.0) Monocytes (%) (Auto) 8.4 % (0.0-12.0) Eosinophils (%) (Auto) 1.6 % (0.0-7.0) Basophils (%) (Auto) 0.5 % (0.0-2.0) Neutrophils # (Auto) 6.8 10 ^3/uL (1.6-8.6) Lymphocytes # (Auto) 2.6 10 ^3/uL (0.4-5.4) Monocytes # (Auto) 0.9 10 ^3/uL (0-1.3) Eosinophils # (Auto) 0.2 10 ^3/uL (0-0.8) Basophils # (Auto) 0.1 10 ^3/uL (0-0.2) Nucleated Red Blood Cells 0.0 % Sodium Level 139 mmol/L (136-145) Potassium Level 4.0 mmol/L (3.5-5.1) Chloride Level 96 mmol/L (98-107) Carbon Dioxide Level 34 mmol/L (20-31) Anion Gap 9 (5-15) Blood Urea Nitrogen 15 mg/dL (9-23) Creatinine 0.88 mg/dL (0.550-1.02) Glomerular Filtration Rate Calc 68 mL/min (>90) BUN/Creatinine Ratio 17.0 (10.0-20.0) Serum Glucose 124 mg/dL (74-106) Calcium Level 9.1 mg/dL (8.7-10.4) Urine Color Yellow (Yellow) Urine Clarity Clear (Clear) Urine pH 6.0 (5.0-9.0) Urine Specific [place] 1.030 (1.001-1.035) Urine Protein Trace (Negative) Urine Ketones Trace (Negative) Urine Blood Negative /uL (Negative) Urine Nitrite Negative (Negative) Urine Bilirubin Negative (Negative) Urine Urobilinogen Normal mg/dL (Negative) Urine Leukocyte Esterase 2+ /uL (Negative) Urine RBC 1 /hpf (0 - 4) Urine Microscopic WBC 12 /HPF (0-5) Urine Squamous Epithelial Cells Few /hpf (<5) Urine Bacteria Few /hpf (None Seen) Urine Yeast (Budding) Occasional /hpf (None Urine Glucose Normal mg/dL (Normal) Prothrombin Time 10.6 sec (9.3-11.8) Prothrombin Time INR 1.00 (0.9-1.15) Test 12/30/24 17:29 12/30/24 15:35 Lactic Acid Level 1.8 mmol/L (0.4-2.0) Erythrocyte Sedimentation Rate 30 mm/hr (0-20) Total Bilirubin 0.4 mg/dL (0.2-1.0) Aspartate Amino Transferase (AST) 17 U/L (13-40) Alanine Aminotransferase (ALT) 19 U/L (7-40) Alkaline Phosphatase 91 U/L (46-116) C-Reactive Protein High Sensitivity 2.21 mg/dL (<1.0) Total Protein 7.8 g/dL (5.7-8.2) Albumin 4.5 g/dL (3.2-4.8) Other Laboratory Tests 01/03/25 07:34 Brief Hx & Hospital Course: 79-year-old female with past medical history of DM, right knee arthroplasty, GERD, hypothyroidism presents after being sent in by her orthopedic surgeon for inpatient admission. Patient endorsed she recently had fluid aspiration from the right knee which resulted positive for staph infection. Initial lab work during the emergency department evaluation CMP Na 138, K4.4, BUN 15, creatinine 1.09, GFR 52 LA 2.4/1.8, C-reactive protein 2.21, ESR 30; CBC W11.9, H&H 13.2/40.6, PLT 423. At this time patient denies fevers, chills, dizziness, shortness of breath, chest pain, palpitations, previous heart attacks, increased leg swelling, dysuria. She is admitted and underwent successful debridement surgery by orthopedic surgeon. Patient is evaluated by Infectious Disease and started on IV antibiotics switch to appropriate oral antibiotics per her recommendations. Otherwise while in the hospital patient is clinically doing well. Pain is tolerable. Stable. Therefore it is felt she could be safely discharged home with continued antibiotics as prescribed and have close follow up with the orthopedic surgeon and Infectious Disease to further manage as appropriate of her knee infection. Patient verbalized understanding of this, verbalized understanding over hospital diagnosis, treatment she received, discharge medications including side effects, discharge instructions and agree with the follow up plan of care as outlined. Consults/Reason for consult Recommendations: s/p explant of prosthesis, planned for two stage procedure.. cont IV Vancomycin per pharmacy. follow OR cultures shows no growth here for [address] Colon. The cultures reviewed shows Staphylococcus Epidermidis S to vancomycin, Doxycycline and Levofloxacin She is Cephalexin allergy picc line is placed. SW consult placed. Arrange IV Vancomycin 1.25g daily managed level by pharmacy, goal trough 10-15, Weekly labs cbc, cmp , vancomycin trough. fax to [phone] arrange Home health follow up with ID as outpatient in 2 weeks follow up with Ortho as oupt Chest x-ray showed No acute cardiopulmonary disease. Knee x-ray showed Hardware status post total knee arthroplasty without evidence of complication. There is no evidence of acute fracture or dislocation. Moderate suprapatellar effusion. Soft tissues are otherwise unremarkable. Total time spent 50 minutes during the encounter Thank you for consult. Plan discussed with: Patient NGUYEN MCKINLEY MD Jan 03, 2025 11:35 Operations or Procedures Operative Report PRE-OP DIAGNOSIS: Infected right total knee arthroplasty POST-OP DIAGNOSIS: Same [place] protocol followed: Yes ESTIMATED BLOOD LOSS: 50 cc PROCEDURE: Revision right total knee arthroplasty with explantation of tibial and femoral component Application of negative pressure wound VAC Revision scar arthrotomy greater than 20 cm Complex wound closure 15 cm subcutaneous SURGEON/CAPTAIN OF GUARDS: Donnell CAMEJO ANESTHESIA: Spinal ANESTHESIOLOGIST: ODELL INFORMED CONSENT: Informed Consent: Discussed all inherent risks, complications, and alternatives treatments with the patient. Patient has agreed to proceed with the procedure. I have reviewed all pre-operative assessments including Labs, EKGs, and radiographic images that has been performed. Patient is an appropriate candidate for the outpatient surgical center procedure. ++ the patient was educated on the fact that the patient has an infection in the right total knee arthroplasty. It was unclear with the patient attained the infection however the patient does not infection of the right total knee arthroplasty with the possibility of aspiration of Staph. Based on these parameters, the patient was educated on the fact that the patient will need a 2 stage explant based on the unclear duration of the infection based on these parameters the patient is a 20 arthroplasty approximately 9 years ago the patient understands the risks benefits of surgical and nonsurgical treatment of the right lower extremity she understood that it is a little be 2 stage revision index the explantation and revision total knee arthroplasty the patient is seen in the preoperative area of the right lower extremity was marked the patient was brought to operative suite general anesthesia was then induced time-out was hospital protocol the right lower extremity was prepped and draped in the standard fashion clindamycin based on an Ancef allergy was given for infectious prophylaxis and TXA was given for bleeding prophylaxis. Time-out was performed to hospital protocol incision was made through skin subcu tissue the Ethibond sutures were then visualized through the old medial parapatellar arthrotomy a medial release was then completed there was significant scar tissue on the medial aspect all the fat pad was removed on the medial and lateral side of the patellar tendon was carefully retracted and a medial release was then completed with the osteotomes were used to remove the polyethylene liner once I was then completed using a reset saw and a single bladed to prevent any arterial injury posteriorly and then using sequential osteotomes and sagittal saw and a reset saw and flexible osteotomes with minimal bone loss the femoral component of the tibial component were carefully removed once it was then done the bones are access cement was done with a reverse swollen to remove the cement in the femoral and tibial canals cultures were then taken of the knee soft tissue was then also center of the knee once I was then completed in the appropriate manner Betadine was then used after the excess cement was carefully removed with the patella button also being carefully removed with the excess cement with Betadine scrub brush was scrubbing of the bone it interface for approximately 10 minutes once I was then done bone dowels were then created with the 4 g of vancomycin and gentamicin on the back table with bone down to be placed along with the antibiotic beads with 1 g of vancomycin once it was then done of the knee was irrigated customized saline once it was then irrigated with a copiously with saline and I then I placed of the of the antibiotic dowels in the long with the antibiotic beads in the canals once it was then done with 12 g of vancomycin and gentamicin along with an am and methylene blue to make the cement more viscous with 2 packets of [place] cement with gentamicin I mixed all the antibiotics with the and then placed it into a CR poly with the Flinqer bus cuff the undersurface of the C-arm polys so it would not interdigitate with the cement mantle the once I was then done I opened a 5 femur and a 4 tibia and I placed it into the component I was irrigated of the knee with copiously with saline along with Irrisept followed by mortise saline significant antibiotic beads were then placed on the revision scar arthrotomy greater than 10 cm were then completed once it was then done with a 1. Stratafix 0 PDS followed by 2-0 PDS followed by zoey. With a negative pressure wound VAC. The patient will be weight- bearing as tolerated on the right lower extremity PT OT out of bed daily we will follow antibiotic cultures. The patient will need some IV antibiotics for 6 weeks' time as per Infectious Disease. The patient will need a sed rate CRP every 2 weeks. The patient will need an alpha defense and test after the patient has stopped taking antibiotics 2 weeks after the antibiotics have been stopped. DONNELL DURAN MD Dec 31, 2024 12:16 Condition at Discharge: Stable Final Diagnosis/Problems List Right knee prosthetic joint infection Staphylococcus Epidermidis infection HX right knee arthroplasty Diabetes Mellitus Discharge Disposition: Home with Health Services Discharge Instruct/Medications Diet: Consistent carbohydrate, Cardiac 2g Na,low cholest Activity: No Restrictions, As Tolerated Follow Up/Referral: follow up with ID as outpatient in 2 weeks follow up with Ortho as oupt in 2 weeks Scheduled Aspirin (Aspirin Low Dose), 1 TAB PO DAILY, (Reported) Cholecalciferol (Vitamin D3), 2 TAB PO DAILY, (Reported) Ezetimibe (Ezetimibe), 10 MG PO DAILY, (Reported) Famotidine (Pepcid Tablet), 1 TAB PO HS, (Reported) Gabapentin (Gabapentin), 600 MG PO TID, (Reported) Hydrochlorothiazide W/Triamter (Triamterene/Hydrochloroth), 1 CAP PO QAM, (Reported) Hydrocodone-Acetaminophen (Hydrocodone/Acetaminophen 10-325 mg), 1 TAB PO TID, (Reported) Levothyroxine Sodium (Levothyroxine Sodium), 1 TAB PO DAILY, (Reported) Metformin Hydrochloride (Metformin Hcl), 500 MG PO TID, (Reported) Omeprazole (Gnp Omeprazole), 20 MG PO DAILY, (Reported) Scheduled PRN Acetaminophen (Acetaminophen), 325 MG PO Q6HP PRN Miscellaneous Medications Latanoprost (Latanoprost), 0.005 % OP, (Reported) Discontinued Medications Ibuprofen Micronized (Motrin Tablet), 600 MG PO TID, (Reported) Discharge Statement: "Patient was advised to return to the ER or call 911 if any headaches, dizziness, shortness of breath, chest pain, abdominal pain, bleeding, fevers, or worsening of medical condition. Patient was counseled about treatment plan, medications, possible side effects, patientverbalized understanding. All questions were answered to the best of my ability. This discharge took greater then 30 minutes in planning, reviewing documentation, counseling the patient, and discussing with other team members." ASSESSMENT ASSESSMENT Assessment Right knee prosthetic joint infection Staphylococcus Epidermidis infection HX right knee arthroplasty Diabetes Mellitus CARMINE HOWARD MD Jan 03, 2025 12:45
[2025-01-03 14:20] VITALS: BP 140/69; PULSE 72; RESP 18; TEMP 98.4; O2SAT 96
== END 2025-01-03 16:30 | disposition home health service (06) | DRG 464 ==
LOC: ER 14:36 → OVERFLOW 20:40 → TELE-WESTW 12-31 16:04
PROVIDERS: ADMIT Nurse Practitioner Family; ATTEND Nurse Practitioner Family
PROC: 0SHC08Z Insertion of Spacer into Right Knee Joint, Open Approach (ICD-10-PCS; 2024-12-31)
PROC: 0SPC0JZ Removal of Synthetic Substitute from Right Knee Joint, Open Approach (ICD-10-PCS; principal; 2024-12-31 10:39)
PROC: 02HV33Z Insertion of Infusion Device into Superior Vena Cava, Percutaneous Approach (ICD-10-PCS; 2025-01-01)
PROC: B548ZZA Ultrasonography of Superior Vena Cava, Guidance (ICD-10-PCS; 2025-01-01)
DX: T84.53XA Infection and inflammatory reaction due to internal right knee prosthesis, initial encounter (principal); R71.0 Precipitous drop in hematocrit; B95.7 Other staphylococcus as the cause of diseases classified elsewhere; E03.9 Hypothyroidism, unspecified; E11.8 Type 2 diabetes mellitus with unspecified complications; E11.9 Type 2 diabetes mellitus without complications; E66.9 Obesity, unspecified; K21.9 Gastro-esophageal reflux disease without esophagitis; Z83.3 Family history of diabetes mellitus; Y83.1 Surgical operation with implant of artificial internal device as the cause of abnormal reaction of the patient, or of later complication, without mention of misadventure at the time of the procedure; Z88.1 Allergy status to other antibiotic agents; Z80.9 Family history of malignant neoplasm, unspecified; Z68.32 Body mass index [BMI] 32.0-32.9, adult; Z88.8 Allergy status to other drugs, medicaments and biological substances; Z91.040 Latex allergy status; Y92.89 Other specified places as the place of occurrence of the external cause; Z79.899 Other long term (current) drug therapy
CPT/HCPCS: 36415; 36569; 71046; 73562; 76937; 80048; 80053; 81001; 82962; 83605; 85025; 85610; 85652; 86141; 86850; 86900; 86901; 87070; 87075; 87205; 96365; 96367; 96372; 96375; 97110; 97116; 97163; 97530; G0378; J0131; J1100; J1815; J1885; J1956; J2405; J2470; J2704; J3490